=== PATIENT | female | born 1940 | race Caucasian/White ===

== ENCOUNTER 2018-10-19 11:08 | Inpatient (IN) ==
[2018-10-19] MEDS ORDERED: 0.9 % SODIUM CHLORIDE 1,000 ML IV ONE ×2 (11:34→13:31)
[2018-10-19] MEDS ORDERED: ONDANSETRON 4 MG/2 ML VIAL IV ONE (11:34)
--- NOTE | 2018-10-19 11:37 | Emergency Department Note ---
Lower Extremity Injury HPI - General Chief Complaint: Extremity Injury, Lower Stated Complaint: Sinus issue and thinks her right foor is broken Time Seen by Provider: 10/19/18 11:33 Source: patient Mode of arrival: ambulatory Limitations: no limitations - History of Present Illness HPI Narrative: 78-year-old female who is complaining of sinus disease frontal and maxillary areas causing postnasal drip and making her nauseous. She has had nausea vomiting for the last week not able to hold anything down. She is urinating some did so right before coming in. Denies any fever but she is having a little bit loose stools. No recent antibiotic About a week ago she also injured her right lateral ankle. Apparently she walked in the snow to get to her daughter's shop and stomped her feet trying to get the snow off of them, twisting her right ankle somehow. Now complaining of difficulty walking and limping - Related Data Home Medications Medication Instructions Recorded Confirmed Aspirin [Jared Chewable Aspirin] 81 mg PO DAILY 05/21/15 05/21/15 Atorvastatin [Lipitor] 10 mg PO HS 05/21/15 05/21/15 Hydrochlorothiazide 12.5 mg PO BID 05/21/15 05/21/15 Hydrocodone/APAP 7.5/325Mg [[place] 1 tab PO Q6HP PRN 05/21/15 05/21/15 7.5/325Mg] Metoprolol Tartrate [Lopressor] 25 mg PO BID 05/21/15 05/21/15 Nitroglycerin [Nitrostat] 0.4 mg SL Q5M PRN 05/21/15 05/21/15 Venlafaxine [Effexor Xr] 150 mg PO DAILY 05/21/15 05/21/15 traZODone HCL [Desyrel] 200 mg PO HS 05/21/15 05/21/15 busPIRone [Buspar] 10 mg PO TID 05/22/15 05/22/15 hydrOXYzine HCL [Hydroxyzine HCl] 50 mg PO DAILYP PRN 05/22/15 05/22/15 Previous Rx's Medication Instructions Recorded Amoxicillin/Potassium Clav 875 mg PO Q12H #20 tablet 05/23/15 [Augmentin] HYDROcodone/APAP 5/325MG [[place] 1 tab PO Q4HP PRN #30 tablet 05/23/15 5/325Mg] Allergies Allergy/AdvReac Type Severity Reaction Status Date / Time Penicillins Allergy Severe Hives Verified 10/19/18 11:15 Sulfa (Sulfonamide Allergy Severe Hives Verified 10/19/18 11:15 Antibiotics) ct dye Allergy Unknown Uncoded 05/21/15 14:53 Review of Systems All systems ED: reviewed and negative except as stated. Past Medical History - Past Medical History Attestation: Yes: The following information was validated with the patient. Medical history: Reports: GERD, hyperlipidemia, hypertension, seizures Psychiatric history: Reports: depression Surgical history ED: Reports: appendectomy, cholecystectomy, hysterectomy (Partial), orthopedic, other (Fingers), other (Laparoscopy) - Social History smoking status: Former smoker Physical Exam No acute distress resting comfortably. Normocephalic atraumatic. Conjunctive are clear sclerae nonicteric. No nasal discharge but some congestion. Oropharynx is pink and moist. Posterior pharynx is erythematous but I do not see any exudate or postnasal drip. Neck is supple without lymphadenopathy or thyromegaly. No carotid bruit. Heart is regular rate and rhythm no murmur appreciated. Lungs are clear to auscultation bilaterally without wheezes rales rhonchi or respiratory distress. Abdomen soft nontender nondistended. However this does make her more nauseous. No pedal edema. Right ankle is mildly more edematous than the left particularly at the lateral malleolus. Forefoot appears normal and nontender. Lateral malleoli are area on the right is tender. posterior tibial pulses intact +2. No pedal edema. She is able to move all of her toes normally. Alert oriented Limitations: no limitations Course Vital Signs Temperature 98.6 F 10/19/18 11:09 Pulse Rate 67 10/19/18 11:09 Respiratory Rate 16 10/19/18 11:09 Blood Pressure 221/99 10/19/18 11:09 Pulse Oximetry (%) 99 10/19/18 11:09 Temperature 98.6 F 10/19/18 11:09 Pulse Rate 62 10/19/18 12:33 Respiratory Rate 16 10/19/18 11:09 Blood Pressure 199/79 10/19/18 12:33 Pulse Oximetry (%) 99 10/19/18 12:33 Extremity Injury, Lower - Lab Data Lab results reviewed: Yes I reviewed the patient's lab results. Result diagrams: 10/19/18 12:27 10/19/18 12:27 Lab Results 10/19/18 10/19/18 Range/Units 12:27 12:27 WBC 8.5 (4.5-11.0) K/mcL RBC 4.78 (4.00-5.20) M/mcL Hgb 13.8 (12.0-15.0) g/dL Hct 42.4 (36.0-48.0) % MCV 88.7 (80.0-100.0) fL MCH 28.8 (26.0-34.0) pg MCHC 32.5 (31.0-36.0) g/dL RDW 14.8 H (11.5-14.5) % Plt Count 192 (140-440) K/mcL MPV 8.1 (7.4-10.4) fL Gran % 75.8 (38.0-78.0) % Lymph % (Auto) 17.0 (15.5-49.0) % [place] % (Auto) 6.2 (1.0-12.0) % Eos % (Auto) 0.9 (0.0-7.0) % Baso % (Auto) 0.1 (0.0-2.0) % Gran # 6.4 (1.8-8.0) K/mcL Lymph # (Auto) 1.4 L (1.5-4.8) K/mcL [place] # (Auto) 0.5 (0.1-0.9) K/mcL Eos # (Auto) 0.1 (0.0-0.7) K/mcL Baso # (Auto) 0 (0.0-0.3) K/mcL Sodium 118 L* (133-145) mmol/L Potassium 4.4 (3.3-5.1) mmol/L Chloride 84 L (96-108) mmol/L Carbon Dioxide 19 L (22-30) mmol/L Anion Gap 15.0 (8-16) BUN 20 (8-23) mg/dl Creatinine 0.9 (0.6-1.1) mg/dl GFR Calculation 61 Glucose 97 (70-105) mg/dL Calcium 9.0 (8.6-10.4) mg/dl Magnesium 1.7 (1.6-2.5) mg/dL Total Bilirubin 0.6 (0.0-1.0) mg/dL AST 23 (0-37) U/l ALT 13 (0-40) U/l Alkaline Phosphatase 101 (39-117) U/L Total Protein 6.7 (5.9-8.4) gm/dL Albumin 3.8 (3.2-5.2) gm/dL Globulin 2.9 (2.2-3.7) gm/dL Albumin/Globulin Ratio 1.3 (1.0-2.3) - Radiology Data Radiology results reviewed: Yes I reviewed the patient's radiology results. Abdominal x-ray series shows no obstructive pattern, nonspecific bowel gas pattern X-ray of the right ankle shows distal fibular fracture, spiral nondisplaced Disposition Pt seen by WORKFORCE SERVICES REPRESENTATIVE/PA only: No Clinical Impression: Gastroenteritis, Dehydration with hyponatremia Right fibular fracture Qualifiers: Encounter type: initial encounter Fibula location: lateral malleolus Fracture type: closed Fracture alignment: nondisplaced Qualified Code(s): S82.64XA - Nondisplaced fracture of lateral malleolus of right fibula, initial encounter for closed fracture Summary: In terms of the sinus disease/nausea vomiting ordered laboratory and x-ray of the abdomen. Start IV fluids nausea medicine For the right ankle ordered set of x-rays. X-ray shows nondisplaced obliquely oriented distal fibular fracture. Will give walking boot and crutches. Dilaudid for pain Urinalysis [id number] dipstick is normal after getting IV fluids. Chemistry shows hyponatremia which is new compared to previous labs we have available-arevalo pedro the latest is 2014. Likely hyponatremia is acute on chronic-that is her psychiatric meds likely cause small amount of hyponatremia with GI losses superimposed Discussed findings with Dr. Majano, the hospitalist, who agreed to accept the patient for further care of her hyponatremia in the hospital. She continued to have some nausea but no further vomiting Disposition: Xfer As Inpt ([facility]) Condition: Good Referrals: Ivett Field ARNP [Primary Care Provider] -
--- NOTE | 2018-10-19 12:20 | XRay Report ---
CLINICAL INFORMATION: Fall. Ankle pain. TECHNIQUE: AP, oblique, lateral right ankle COMPARISON: None. FINDINGS: Transversely oriented fracture of the distal right fibula at the metadiaphyseal junction. No displacement or angulation. Distal tibia is negative. No distal tibial fracture. No acute medial malleolar fracture. Tibiotalar joint and fibulotalar joints appear normal. There are bone densities between the distal tibia and talus are consistent with old injury. Ossicles are possible. No talar fracture. Articular surface is intact. There is degenerative joint disease at the subtalar joint. The calcaneus is negative for acute fracture. There is sclerosis and there is a plantar calcaneal spur. There is lateral periarticular soft tissue swelling IMPRESSION: 1. Nondisplaced transversely oriented fracture of the distal right fibula at the metadiaphyseal junction 2. No distal tibial fracture. Tibiotalar joint is negative. Interpreted and Authenticated by: Leon Diaz 10/19/18
--- NOTE | 2018-10-19 12:23 | XRay Report ---
CLINICAL INFORMATION: Abdominal pain TECHNIQUE: Supine and upright abdomen COMPARISON: None. FINDINGS: There is gas throughout the colon. There is small bowel gas without significant dilatation. No significant air-fluid levels. No pneumoperitoneum. No pneumatosis. No biliary or portal venous gas. No focal abnormality IMPRESSION: 1. Negative supine and upright abdomen 2. Nonspecific and nonobstructive bowel gas pattern Interpreted and Authenticated by: Leon Diaz 10/19/18
[2018-10-19 13:13] LABS: Basophils # (Auto) 0 K/mcL (0.0-0.3); Basophils % (Auto) 0.1 % (0.0-2.0); Eosinophils # (Auto) 0.1 K/mcL (0.0-0.7); Eosinophils % (Auto) 0.9 % (0.0-7.0); Granulocytes % (Auto) 75.8 % (38.0-78.0); Lymphocytes # (Auto) 1.4 K/mcL (1.5-4.8); Mean Cell Volume 88.7 fL (80.0-100.0); Mean Corpuscular HGB Conc 32.5 g/dL (31.0-36.0); Monocytes # (Auto) 0.5 K/mcL (0.1-0.9); Monocytes % (Auto) 6.2 % (1.0-12.0); Platelet Count 192 K/mcL (140-440); RBC 4.78 M/mcL (4.00-5.20); Red Cell Distribution Width 14.8 % (11.5-14.5)
[2018-10-19 13:28] LABS: ALT/SGPT 13 U/l (0-40); Albumin 3.8 gm/dL (3.2-5.2); Albumin/Globulin Ratio 1.3 (1.0-2.3); Alkaline Phosphatase 101 U/L (39-117); Blood Urea Nitrogen 20 mg/dl (8-23)
[2018-10-19] MEDS ORDERED: HYDROmorphone 2 MG/ML VIAL IV PRN (13:50)
[2018-10-19] MEDS ORDERED: hydrALAZINE 20 MG/ML VIAL IV ONE (14:01)
--- NOTE | 2018-10-19 14:04 | Internal Med History&Physical ---
Medical - H&P: HPI Patient information: Note initiated : 10/19/18 at 2:01 pm Service Date, if different from initiated Date: [] Patient: Gwen Slaughter a 78 y/o F admitted on for Sinus issue and thinks her right foot is broken. Chief Complaint: [] Chief complaint: weakness, nausea and dirrhea History of present illness: Ms. Slaughter is a 78 year old F with a history of hypertension, anxiety disorder and degenerative joint disease who presents to the ER with worsening weakness fatigue nausea with loss of appetite and diarrhea that has evolved over the last 1 week. Patient has progressively deteriorated to the point that she is unable to function. She lives alone and normally is able to perform activities of daily living independently. She has a daughter and a son in town. symptoms are also exacerbated with increasing pain in the right ankle after she was trying to stump snow out of her boot and sustained injury. All the symptoms above culminated into patient unable to function. She also has associated loss of appetite but denies fever chills. She does endorse to bilateral lower extremity cramps. She denies weight gain weight loss, sick contacts, new medication changes. She subsequently presents to the ER with above symptoms Initial workup was consistent with low sodium at 118, right fibular fracture on imaging, and generalized weakness. Right fibular fracture noted on imaging. Patient was placed on a boot. Hospitalist service was consulted for admission. At the time of evaluation patient is alert oriented. She was able to answer most of the questions. Was able to endorse history as above. She denies bloody stool, chest pain, shortness of breath, rash, headache photophobia. She does endorse to bilateral breast fungal infection around the folds. She actively smokes and is requesting nicotine patch. She also complains of right ankle pain which is now currently in a boot. Review of systems 10 point review of system was performed and is negative except for one discussed above Medical - H&P: PMH Medical history: Hypertension. Degenerative joint disease. Hyperlipidemia Coronary disease. seizure disorder GERD Anxiety/depression Insomnia. Surgical history: appendectomy cholecystectomy hysterectomy (Partial) (Laparoscopy) Pertinent family history: Significant for sister with thyroid cancer and brother with leukemia. Social history: he patient is and lives in [place]. She has one son and two daughters with son and daughter Myra living in the [place] She used to work for [employer] in the [employer] for 25 years, currently retired. primary care provider [facility] Alexis. actively smoking- No ETOH Smoking status: Current every day smoker Medical - H&P: Meds Home Medications Medication Instructions Recorded Confirmed Type Aspirin [Jared Chewable Aspirin] 81 mg PO DAILY 05/21/15 10/19/18 History Metoprolol Tartrate [Lopressor] 50 mg PO BID 05/21/15 10/19/18 History Venlafaxine [Effexor Xr] 150 mg PO DAILY 05/21/15 10/19/18 History busPIRone [Buspar] 10 mg PO TID 05/22/15 10/19/18 History Aripiprazole [Abilify] 2 mg PO DAILY 10/19/18 10/19/18 History Losartan/Hctz 50/12.5 [Hyzaar 1 tab PO DAILY 10/19/18 10/19/18 History 50/12.5] Nystatin Crm 1 dose TOPICAL BID 10/19/18 10/19/18 History Omeprazole [PriLOSEC] 20 mg PO DAILY 10/19/18 10/19/18 History Pravastatin Sodium [Pravachol] 40 mg PO DAILY 10/19/18 10/19/18 History Prazosin HCl [Minipress] 1 mg PO HS 10/19/18 10/19/18 History Promethazine [Phenergan] 12.5 mg PO Q6HP PRN 10/19/18 10/19/18 History lamoTRIgine [Lamictal] 25 mg PO HS 10/19/18 10/19/18 History levETIRAcetam [Levetiracetam] 2 tab PO DAILY 10/19/18 10/19/18 History Allergies Allergy/AdvReac Type Severity Reaction Status Date / Time Penicillins Allergy Mild Hives Verified 10/19/18 15:19 Sulfa (Sulfonamide Allergy Mild Hives Verified 10/19/18 15:19 Antibiotics) Iodinated Contrast- Oral and Allergy Unknown Unknown Verified 10/19/18 15:19 IV Dye Medical - H&P: Exam - Constitutional Vitals: Temp Pulse Resp BP Pulse Ox 98.6 F 62 16 199/79 99 10/19/18 11:09 10/19/18 12:33 10/19/18 11:09 10/19/18 12:33 10/19/18 12:33 General appearance: morbidly obese Exam: Alert oriented Head normocephalic Eye movements symmetrical oral cavity dry No ear nose discharge Neck no lymphadenopathy S1-S2 regular rhythm, ejection systolic murmur grade 1 Diminished breath sounds bases Fungal dermatitis B/l breast folds Skin otherwise no suspicious lesion Psych alert cooperative Lower extremity no cyanosis clubbing,Rt Foot in boot Neuro nonfocal Medical - H&P: Reslt - Labs CBC & Chem 7: 10/19/18 12:27 10/19/18 12:27 Labs: Short CBC 10/19/18 Range/Units 12:27 WBC 8.5 (4.5-11.0) K/mcL Hgb 13.8 (12.0-15.0) g/dL Hct 42.4 (36.0-48.0) % Plt Count 192 (140-440) K/mcL BMP 10/19/18 12:27 Sodium 118 L* Potassium 4.4 Chloride 84 L Carbon Dioxide 19 L BUN 20 Creatinine 0.9 Glucose 97 Calcium 9.0 Liver Function 10/19/18 Range/Units 12:27 Total Bilirubin 0.6 (0.0-1.0) mg/dL AST 23 (0-37) U/l ALT 13 (0-40) U/l Alkaline Phosphatase 101 (39-117) U/L Albumin 3.8 (3.2-5.2) gm/dL Medical - H&P: A/P (1) Acute hyponatremia Current visit: Yes Status: Acute * Acute hyponatremia-likely secondary to thiazide/low salt intake and recent diarrhea leading to solute loss. Sodium 118. Check 4 hourly sodium, urine sodium, serum and urine osmolality. Admit inpatient telemetry. Very high risk seizure in the setting of seizure disorder and hyponatremia. Continue neuro checks. * Acute gastroenteritis with nausea and mild diarrhea. Check stool studies. continue supportive management. GI consult for endoscopy. * Right lateral ankle/fibular fracture-nonoperative as per ER physician. Will be on supportive boots. Continue pain management * Suboptimally controlled hypertension-continue as needed hydralazine to keep systolic less than 180/target optimization of high blood pressure over the next 48 hours. * Fungal intertrigo- anti fungal * Anxiety disorder continue Effexor/trazodone/BuSpar * Hyperlipidemia on statin * Degenerative joint disease continue home dose hydrocodone * Active smoking/tobacco dependence- Nicotine patch * Hypertension on metoprolol/thiazide. However medications are being verified * Full code * Prophylaxis heparin Plan * Telemetry admit * 4 hours sodium check, U/Serum Osm, U Na * Optimize blood pressure management * Pain control/PTOT * Supportive management for acute gastroenteritis * Prior medical condition management at home meds
[2018-10-19] MEDS ORDERED: ACETAMINOPHEN 1,000 MG/100 ML BOTTLE IV PRN (15:09)
[2018-10-19] MEDS ORDERED: 0.9 % SODIUM CHLORIDE 1,000 ML IV SCH (15:09)
[2018-10-19] MEDS ORDERED: MAGNESIUM HYDROXIDE 30 ML ORAL.SUSP PO PRN (15:09)
[2018-10-19] MEDS ORDERED: POTASSIUM CHLORIDE 20 MEQ PACKET PO PRN (15:09)
[2018-10-19] MEDS ORDERED: MAGNESIUM SULFATE 2 GM/50 ML BAG IV PRN (15:09)
[2018-10-19] MEDS: 0.9 % SODIUM CHLORIDE 10 ML SYRINGE IV SCH ×2 (15:15→21:09)
[2018-10-19 16:52] LABS: Appearance,Urine CLEAR; Bilirubin,Urine NEG (NEG); Color,Urine COLORLESS; Glucose,Urine (UA) NEGATIVE (NEG); Leukocyte Esterase,Urine NEG /uL (NEG); Protein,Urine NEG (NEG); Specific Gravity,Urine 1.003 (1.000-1.035); Urine Blood NEG mg/dL (<0.03); Urobilinogen,Urine NEG (NEG)
[2018-10-19] MEDS: HYDROmorphone 2 MG/ML VIAL IV PRN ×2 (17:08→22:31)
[2018-10-19] MEDS: ACETAMINOPHEN 325 MG TABLET PO PRN (17:09)
[2018-10-19 17:23] LABS: Osmolality,Urine 123 mOsm/kg (80-1000)
[2018-10-19] MEDS: DEXTROSE 5% IN WATER 500 ML IV SCH ×3 (19:07→23:47)
[2018-10-19] MEDS: DOCUSATE SODIUM 100 MG CAPSULE PO SCH (21:08)
[2018-10-19] MEDS: SENNOSIDES/DOCUSATE SODIUM 1 TAB TABLET PO SCH (21:08)
[2018-10-19] MEDS: ONDANSETRON 4 MG/2 ML VIAL IV PRN (21:08)
[2018-10-19] MEDS: HEPARIN 5,000 UNIT/ML VIAL SQ SCH (21:09)
[2018-10-20 05:04] LABS: Mean Cell Volume 90.4 fL (80.0-100.0); Mean Corpuscular HGB Conc 32.5 g/dL (31.0-36.0); Platelet Count 218 K/mcL (140-440); RBC 4.26 M/mcL (4.00-5.20); Red Cell Distribution Width 14.9 % (11.5-14.5)
[2018-10-20 05:23] LABS: ALT/SGPT 10 U/l (0-40); Albumin 3.3 gm/dL (3.2-5.2); Albumin/Globulin Ratio 1.4 (1.0-2.3); Alkaline Phosphatase 83 U/L (39-117); Bilirubin,Direct < 0.2 mg/dL (0.0-0.3); Blood Urea Nitrogen 9 mg/dl (8-23); Gamma Glutamyl Transpeptidase 22 U/L (5-36); Uric Acid 2.9 mg/dL (2.5-8.0)
[2018-10-20] MEDS: 0.9 % SODIUM CHLORIDE 10 ML SYRINGE IV SCH ×3 (07:20→21:39)
[2018-10-20 07:21] LABS: Band Neutrophils % 1 % (0-10); Eosinophils % (Manual) 2 % (0-7); Lymphocytes % 16 % (15-49); Monocytes % (Manual) 6 % (1-12); Platelet Estimate NORMAL (NORMAL); RBC Morphology NORMAL (NORMAL); Segmented Neutrophils % 75 % (38-78)
[2018-10-20] MEDS: HYDROmorphone 2 MG/ML VIAL IV PRN (07:22)
[2018-10-20] MEDS: ACETAMINOPHEN 325 MG TABLET PO PRN ×2 (07:22→13:57)
[2018-10-20] MEDS ORDERED: LEVOFLOXACIN 500 MG TABLET PO SCH (09:00)
[2018-10-20] MEDS ORDERED: LORazepam 2 MG/ML VIAL IV ONE (09:42)
[2018-10-20] MEDS ORDERED: PROMETHAZINE 25 MG TABLET PO PRN (10:02)
[2018-10-20] MEDS: LOSARTAN 50 MG TABLET PO SCH (10:09)
[2018-10-20] MEDS: DOCUSATE SODIUM 100 MG CAPSULE PO SCH ×2 (10:10→21:39)
[2018-10-20] MEDS: HEPARIN 5,000 UNIT/ML VIAL SQ SCH ×2 (10:12→21:41)
[2018-10-20] MEDS: MULTIVIT,THER IRON,CA,FA & MIN 1 TABLET PO SCH (10:12)
[2018-10-20] MEDS: amLODIPine 5 MG TABLET PO SCH (10:13)
--- NOTE | 2018-10-20 10:28 | Internal Med Progress Note ---
Medical - PN: Subj Patient information: Note initiated : 10/20/18 at 10:25 am Service Date, if different from initiated Date: [] Patient: Gwen Slaughter a 78 y/o F admitted on 10/19/18 for Sinus issue and thinks her right foot is broken. Chief Complaint: [] Interval history: Ms. Slaughter is a 78 year old F with a history of hypertension, anxiety disorder and degenerative joint disease who presents to the ER with worsening weakness fatigue nausea with loss of appetite and diarrhea that has evolved over the last 1 week. Patient has progressively deteriorated to the point that she is unable to function. She lives alone and normally is able to perform activities of daily living independently. She has a daughter and a son in town. symptoms are also exacerbated with increasing pain in the right ankle after she was trying to stump snow out of her boot and sustained injury. All the symptoms above culminated into patient unable to function. She also has associated loss of appetite but denies fever chills. She does endorse to bilateral lower extremity cramps. She denies weight gain weight loss, sick contacts, new medication changes. She subsequently presents to the ER with above symptoms Initial workup was consistent with low sodium at 118, right fibular fracture on imaging, and generalized weakness. Right fibular fracture noted on imaging. Patient was placed on a boot. Hospitalist service was consulted for admission. At the time of evaluation patient is alert oriented. She was able to answer most of the questions. Was able to endorse history as above. She denies bloody stool, chest pain, shortness of breath, rash, headache photophobia. She does endorse to bilateral breast fungal infection around the folds. She actively smokes and is requesting nicotine patch. She also complains of right ankle pain which is now currently in a boot. 10/20- Patient seen in room. Systolics elevated. Restarted on home meds. Sodium improved to 126 from 118. Denies fever chills. Feeling a lot better. Persistent pain however nonoperative fibular fracture currently in boot. Continue physical therapy. Continue optimizing hypertension management. Discontinue hydrochlorthiazide and start amlodipine in light of hyponatremia. - Constitutional Vitals: Vital Signs Temp Pulse Resp BP Pulse Ox 97.3 F 68 18 141/77 99 10/20/18 07:03 10/19/18 20:00 10/20/18 07:03 10/20/18 07:03 10/20/18 07:03 Period Temp Pulse Resp BP Sys/Spencer Pulse Ox Last 24 Hr 97.3 F-98.6 F 59-73 12-18 138-221/58-99 93-100 Intake and Output 10/19/18 10/20/18 10/20/18 21:59 05:59 13:59 Intake Total 1699 240 Output Total 1950 1400 Balance -251 -1160 Weight 169 lb 8 oz Intake & Output: Intake & Output 10/19/18 10/20/18 10/20/18 21:59 05:59 13:59 Intake Total 1699 240 Output Total 1950 1400 Balance -251 -1160 Weight 169 lb 8 oz Intake: IV 1699 Sodium Chloride 0.9% 1,000 ml @ 1149 50 mls/hr IV .Q20H JERRY Rx#: [id number] Oral 240 Output: Void Amount 1950 1400 Other: Meal Dinner Breakfast Percent of Meal Consumed 100% 100% Feeding Ability Assist with Tray Set Up Urine Appearance Clear Urine Color Pale # Voids 1 General appearance: cooperative, no acute distress Exam: No labored breathing Medicine abdomen No telemetry events Right fibular fracture currently on supportive boot Medical - PN: Obj Da - Labs CBC & Chem 7: 10/20/18 03:45 10/20/18 03:45 Labs: Abnormal Lab Results 10/20/18 10/20/18 10/20/18 03:45 03:45 00:42 RDW 14.9 H Lymph # (Auto) Sodium 126 L 126 L Chloride 93 L Carbon Dioxide Osmolality Calcium 8.1 L Total Protein 5.7 L Urine Ketones 10/19/18 10/19/18 10/19/18 19:57 16:45 16:20 RDW Lymph # (Auto) Sodium 122 L 127 L Chloride Carbon Dioxide Osmolality 267 L Calcium Total Protein Urine Ketones 10/19/18 10/19/18 10/19/18 16:20 12:27 12:27 RDW 14.8 H Lymph # (Auto) 1.4 L Sodium 118 L* Chloride 84 L Carbon Dioxide 19 L Osmolality Calcium Total Protein Urine Ketones 5/tr A Meds: Medications Acetaminophen (Tylenol) 650 mg PO Q4-6HP PRN PRN Reason: PAIN/FEVER > 101 Last Admin: 10/20/18 07:22 Dose: 650 mg Documented by: Amlodipine Besylate (Norvasc) 5 mg PO DAILY [facility] Last Admin: 10/20/18 10:13 Dose: 5 mg Documented by: Aspirin (Aspirin) 81 mg PO DAILY [facility] Docusate Sodium (Colace) 100 mg PO BID [facility] Last Admin: 10/20/18 10:10 Dose: Not Given Documented by: Heparin Sodium (Porcine) (Heparin) 5,000 unit SQ Q12 [facility] Last Admin: 10/20/18 10:12 Dose: 5,000 unit Documented by: Hydromorphone HCl (Dilaudid) 0.25 mg IV Q4-6HP PRN PRN Reason: PAIN LEVEL > 6 Last Admin: 10/20/18 07:22 Dose: 0.25 mg Documented by: Magnesium Sulfate (Magnesium Sulfate) 2 gm in 50 mls @ 50 mls/hr IV UD PRN PRN Reason: MG = or < 1.7 Last Infusion: 10/19/18 17:09 Dose: Infused Documented by: Acetaminophen (Ofirmev) 1,000 mg in 100 mls @ 200 mls/hr IV Q6HP PRN PRN Reason: PAIN/FEVER > 101 Iron Carb/Multivit/Commercial Service Technician/Folic Acid (Multivitamin W/Minerals) 1 tab PO DAILY [facility] Last Admin: 10/20/18 10:12 Dose: 1 tab Documented by: Lamotrigine (Lamictal) 25 mg PO HS [facility] Losartan Potassium (Cozaar) 50 mg PO DAILY [facility] Last Admin: 10/20/18 10:09 Dose: 50 mg Documented by: Magnesium Hydroxide (Milk Of Magnesia) 30 ml PO HSP PRN PRN Reason: Constipation Metoprolol Succinate (Toprol Xl) 50 mg PO BID [facility] Non-Formulary Medication (Levetiracetam [Levetiracetam]) 2 tab PO DAILY [facility] Omeprazole (Prilosec) 20 mg PO QAMAC [facility] Ondansetron HCl (Zofran) 4 mg IV Q4-6HP PRN PRN Reason: Nausea And Vomiting Last Admin: 10/19/18 21:08 Dose: 4 mg Documented by: Potassium Chloride (Klor-Con) 40 meq PO DAILYP PRN PRN Reason: K+ < 3.5 Prazosin HCl (Minipress) 1 mg PO HS [facility] Promethazine HCl (Phenergan) 12.5 mg PO Q6HP PRN PRN Reason: Nausea Senna/Docusate Sodium (Senna Plus Tablet) 1 tab PO HS [facility] Last Admin: 10/19/18 21:08 Dose: 1 tab Documented by: Simvastatin (Zocor) 20 mg PO HS [facility] Sodium Chloride (Saline Flush) 10 ml IV Q8 [facility] Last Admin: 10/20/18 07:20 Dose: 10 ml Documented by: Venlafaxine HCl (Effexor Xr) 150 mg PO DAILY [facility] Medical - PN: A/P - Time Spent With Patient Total time spent is greater than 50% in coordination of care (as documented) at patient's floor/unit and/or counseling patient: 25 - 35 minutes (1) Acute hyponatremia Status: Acute Assessment and plan: * Acute hypovolemic hyponatremia-likely secondary to thiazide/low salt intake and recent diarrhea leading to solute loss. Sodium 118-> 126. Right is at goal. DC thiazide very high risk seizure in the setting of seizure disorder and hyponatremia. Urine osmolality< serum consistent with NONSIADH state. * Acute gastroenteritis with nausea and mild diarrhea. Clinically improving. Diarrhea resolved. * Right lateral ankle/fibular fracture-nonoperative as per ER physician. Will be on supportive boots. Continue pain management * Suboptimally controlled hypertension-continue as needed hydralazine, restart home medications except for thiazide in light of hyponatremia. Initiate amlodipine. * Fungal intertrigo-continue anti fungal * Anxiety disorder continue Effexor/trazodone/BuSpar * Hyperlipidemia on statin * Degenerative joint disease continue home dose hydrocodone * Active smoking/tobacco dependence- Nicotine patch * Hypertension on metoprolol/thiazide. However medications are being verified * Full code * Prophylaxis heparin Plan * Continue telemetry monitoring * DC thiazide/start amlodipine * DC sodium checks * Fracture pain control * PTOT * Case management to coordinate his next * prior medical condition management at home meds Current Visit: Yes Medical - PN: Qual - VTE Deep Vein Thrombosis/Pulmonary Embolism Present on Admission: No
[2018-10-20] MEDS: METOPROLOL SUCCINATE 50 MG TAB.XL.24H PO SCH ×2 (11:28→21:39)
[2018-10-20] MEDS: ONDANSETRON 4 MG/2 ML VIAL IV PRN (11:31)
--- NOTE | 2018-10-20 11:51 | Magnetic Resonance Report ---
CLINICAL INFORMATION: Vertigo COMPARISON: Previous MRI scan dated 05/26/2017 TECHNIQUE: Sagittal T1 FLAIR images. Axial DWI, T1 FLAIR, T2 FLAIR, T2, GRE. Coronal T2 FSE. FINDINGS: No restricted diffusion. No acute infarction. There is no susceptibility. No hemorrhagic abnormality. There is white matter abnormality. There are multiple foci of increased signal intensity in the periventricular and subcortical white matter of both hemispheres. Findings are most consistent with small vessel ischemic change in this 78-year-old patient. No new intra-axial signal abnormality. No localized mass effect. No midline shift. There is mild cerebral atrophy, age-appropriate. Brainstem and cerebellum are negative. No extra-axial, intracranial abnormality. Normal flow void in vessels at the base of the brain. Temporal bones are negative. No focal signal abnormality. Paranasal sinuses are negative IMPRESSION: 1. Mild cerebral atrophy and white matter abnormality consistent with small vessel ischemic change 2. No acute or focal abnormality 3. No significant interval change since 05/26/2017 Interpreted and Authenticated by: Leon Diaz 10/20/18
--- NOTE | 2018-10-20 13:44 | Internal Med Progress Note ---
Medical - PN: Subj Patient information: Note initiated : 10/20/18 at 1:40 pm Service Date, if different from initiated Date: [] Patient: Gwen Slaughter a 78 y/o F admitted on 10/19/18 for Sinus issue and thinks her right foot is broken. Chief Complaint: [] Interval history: Ms. Slaughter is a 78 year old F with a history of hypertension, anxiety disorder and degenerative joint disease who presents to the ER with worsening weakness fatigue nausea with loss of appetite and diarrhea that has evolved over the last 1 week. Patient has progressively deteriorated to the point that she is unable to function. She lives alone and normally is able to perform activities of daily living independently. She has a daughter and a son in town. symptoms are also exacerbated with increasing pain in the right ankle after she was trying to stump snow out of her boot and sustained injury. All the symptoms above culminated into patient unable to function. She also has associated loss of appetite but denies fever chills. She does endorse to bilateral lower extremity cramps. She denies weight gain weight loss, sick contacts, new medication changes. She subsequently presents to the ER with above symptoms Initial workup was consistent with low sodium at 118, right fibular fracture on imaging, and generalized weakness. Right fibular fracture noted on imaging. Patient was placed on a boot. Hospitalist service was consulted for admission. At the time of evaluation patient is alert oriented. She was able to answer most of the questions. Was able to endorse history as above. She denies bloody stool, chest pain, shortness of breath, rash, headache photophobia. She does endorse to bilateral breast fungal infection around the folds. She actively smokes and is requesting nicotine patch. She also complains of right ankle pain which is now currently in a boot. 10/20- Patient seen in room. Systolics elevated. Restarted on home meds. Sodium improved to 126 from 118. Denies fever chills. Feeling a lot better. Persistent pain however nonoperative fibular fracture currently in boot. Continue physical therapy. Continue optimizing hypertension management. Discontinue hydrochlorthiazide and start amlodipine in light of hyponatremia. 10/21 - Constitutional Vitals: Vital Signs Temp Pulse Resp BP Pulse Ox 98.8 F 62 18 172/66 99 10/20/18 11:31 10/20/18 09:53 10/20/18 11:31 10/20/18 11:31 10/20/18 11:31 Period Temp Pulse Resp BP Sys/Spencer Pulse Ox Last 24 Hr 97.3 F-98.8 F 59-73 12-18 138-208/58-86 93-100 Intake and Output 10/19/18 10/20/18 10/20/18 21:59 05:59 13:59 Intake Total 1699 240 Output Total 1950 1400 Balance -251 -1160 Weight 76.884 kg Intake & Output: Intake & Output 10/19/18 10/20/18 10/20/18 21:59 05:59 13:59 Intake Total 1699 240 Output Total 1950 1400 Balance -251 -1160 Weight 76.884 kg Intake: IV 1699 Sodium Chloride 0.9% 1,000 ml @ 1149 50 mls/hr IV .Q20H JERRY Rx#: [id number] Oral 240 Output: Void Amount 1949 1400 Other: Meal Dinner Breakfast Percent of Meal Consumed 100% 100% Feeding Ability Assist with Tray Set Up Urine Appearance Clear Urine Color Pale # Voids 1 Exam: General: Alert, Awake, No acute Distress Eyes/N/T: EOMI, Head/Neck: neck supple, CV: RRR, No murmurs, Pulm: Clear b/l, no wheezing/rhonchi/rales Abd: soft, nontender, +BS x4 Ext: no clubbing/cyanosis/edema, right LE in boot Neuro: Alert, no focal deficits, moves all extremities, Skin: warm/dry Medical - PN: Obj Da - Labs CBC & Chem 7: 10/20/18 03:45 10/20/18 03:45 Labs: Abnormal Lab Results 10/20/18 10/20/18 10/20/18 03:45 03:45 00:42 RDW 14.9 H Lymph # (Auto) Sodium 126 L 126 L Chloride 93 L Carbon Dioxide Osmolality Calcium 8.1 L Total Protein 5.7 L Urine Ketones 10/19/18 10/19/18 10/19/18 19:57 16:45 16:20 RDW Lymph # (Auto) Sodium 122 L 127 L Chloride Carbon Dioxide Osmolality 267 L Calcium Total Protein Urine Ketones 10/19/18 10/19/18 10/19/18 16:20 12:27 12:27 RDW 14.8 H Lymph # (Auto) 1.4 L Sodium 118 L* Chloride 84 L Carbon Dioxide 19 L Osmolality Calcium Total Protein Urine Ketones 5/tr A Meds: Medications Acetaminophen (Tylenol) 650 mg PO Q4-6HP PRN PRN Reason: PAIN/FEVER > 101 Last Admin: 10/20/18 07:22 Dose: 650 mg Documented by: Amlodipine Besylate (Norvasc) 5 mg PO DAILY [facility] Last Admin: 10/20/18 10:13 Dose: 5 mg Documented by: Aspirin (Aspirin) 81 mg PO DAILY [facility] Docusate Sodium (Colace) 100 mg PO BID [facility] Last Admin: 10/20/18 10:10 Dose: Not Given Documented by: Heparin Sodium (Porcine) (Heparin) 5,000 unit SQ Q12 [facility] Last Admin: 10/20/18 10:12 Dose: 5,000 unit Documented by: Hydromorphone HCl (Dilaudid) 0.25 mg IV Q4-6HP PRN PRN Reason: PAIN LEVEL > 6 Last Admin: 10/20/18 07:22 Dose: 0.25 mg Documented by: Magnesium Sulfate (Magnesium Sulfate) 2 gm in 50 mls @ 50 mls/hr IV UD PRN PRN Reason: MG = or < 1.7 Last Infusion: 10/19/18 17:09 Dose: Infused Documented by: Acetaminophen (Ofirmev) 1,000 mg in 100 mls @ 200 mls/hr IV Q6HP PRN PRN Reason: PAIN/FEVER > 101 Iron Carb/Multivit/[place]/Folic Acid (Multivitamin W/Minerals) 1 tab PO DAILY [facility] Last Admin: 10/20/18 10:12 Dose: 1 tab Documented by: Lamotrigine (Lamictal) 25 mg PO HS [facility] Losartan Potassium (Cozaar) 50 mg PO DAILY [facility] Last Admin: 10/20/18 10:09 Dose: 50 mg Documented by: Magnesium Hydroxide (Milk Of Magnesia) 30 ml PO HSP PRN PRN Reason: Constipation Metoprolol Succinate (Toprol Xl) 50 mg PO BID [facility] Last Admin: 10/20/18 11:28 Dose: 50 mg Documented by: Omeprazole (Prilosec) 20 mg PO QAMAC [facility] Ondansetron HCl (Zofran) 4 mg IV Q4-6HP PRN PRN Reason: Nausea And Vomiting Last Admin: 10/20/18 11:31 Dose: 4 mg Documented by: Potassium Chloride (Klor-Con) 40 meq PO DAILYP PRN PRN Reason: K+ < 3.5 Prazosin HCl (Minipress) 1 mg PO HS [facility] Promethazine HCl (Phenergan) 12.5 mg PO Q6HP PRN PRN Reason: Nausea Senna/Docusate Sodium (Senna Plus Tablet) 1 tab PO HS [facility] Last Admin: 10/19/18 21:08 Dose: 1 tab Documented by: Simvastatin (Zocor) 20 mg PO HS [facility] Sodium Chloride (Saline Flush) 10 ml IV Q8 [facility] Last Admin: 10/20/18 07:20 Dose: 10 ml Documented by: Venlafaxine HCl (Effexor Xr) 150 mg PO DAILY [facility] Medical - PN: A/P - Time Spent With Patient Total time spent is greater than 50% in coordination of care (as documented) at patient's floor/unit and/or counseling patient: - Narrative A/P Narrative: A: *Acute hypovolemic hyponatremia: likely secondary to thiazide/low salt intake and recent diarrhea leading to solute loss -Sodium 118-> 126. DC thiazide very high risk seizure in the setting of seizure disorder and hyponatremia. -Urine osmolality< serum consistent with NONSIADH state. *Acute gastroenteritis with nausea and mild diarrhea. Clinically improving. Diarrhea resolved. *Right lateral ankle/fibular fracture-nonoperative as per ER physician. Will be on supportive boots. Continue pain management *Suboptimally controlled hypertension: *Fungal intertrigo-continue anti fungal *Anxiety disorder continue Effexor/trazodone/BuSpar *Hyperlipidemia: on statin *Degenerative joint disease continue home dose hydrocodone *Active smoking/tobacco dependence- Nicotine patch *Hypertension on metoprolol/thiazide. However medications are being verified Plan: --continue telemetry monitoring -DC thiazide/start amlodipine -DC sodium checks -continue as needed hydralazine, restart home medications except for thiazide in light of hyponatremia. Initiate amlodipine. -Fracture pain control, cont boot, f/u with Ortho -PT/OT -Case management -Smoking cessation counseling -ppx: heparin Full code Medical - PN: Qual - VTE Deep Vein Thrombosis/Pulmonary Embolism Present on Admission: No
[2018-10-20] MEDS ORDERED: HYDROcodone/APAP 5/325MG TABLET PO ONE (17:50)
[2018-10-20] MEDS ORDERED: SIMVASTATIN 20 MG TABLET PO SCH (21:00)
[2018-10-20] MEDS ORDERED: PRAZOSIN 1 MG CAPSULE PO SCH (21:00)
[2018-10-20] MEDS: NICOTINE 7 MG PATCH TOPICAL SCH (21:38)
[2018-10-20] MEDS: SENNOSIDES/DOCUSATE SODIUM 1 TAB TABLET PO SCH (21:39)
[2018-10-21] MEDS: HYDROcodone/APAP 5/325MG TABLET PO PRN ×4 (00:02→20:49)
[2018-10-21 05:22] LABS: Mean Cell Volume 89.9 fL (80.0-100.0); Platelet Count 201 K/mcL (140-440); RBC 4.08 M/mcL (4.00-5.20); Red Cell Distribution Width 14.9 % (11.5-14.5)
[2018-10-21 05:32] LABS: ALT/SGPT 8 U/l (0-40); Albumin 3.4 gm/dL (3.2-5.2); Albumin/Globulin Ratio 1.4 (1.0-2.3); Alkaline Phosphatase 74 U/L (39-117); Bilirubin,Direct < 0.2 mg/dL (0.0-0.3); Blood Urea Nitrogen 8 mg/dl (8-23); Gamma Glutamyl Transpeptidase 21 U/L (5-36); Uric Acid 2.6 mg/dL (2.5-8.0)
[2018-10-21] MEDS: 0.9 % SODIUM CHLORIDE 10 ML SYRINGE IV SCH ×3 (05:50→23:16)
--- NOTE | 2018-10-21 07:03 | Internal Med Progress Note ---
Medical - PN: Subj Patient information: Note initiated : 10/21/18 at 7:00 am Service Date, if different from initiated Date: [] Patient: Gwen Slaughter a 78 y/o F admitted on 10/19/18 for Sinus issue and thinks her right foot is broken. Chief Complaint: [] Interval history: Ms. Slaughter is a 78 year old F with a history of hypertension, anxiety disorder and degenerative joint disease who presents to the ER with worsening weakness fatigue nausea with loss of appetite and diarrhea that has evolved over the last 1 week. Patient has progressively deteriorated to the point that she is unable to function. She lives alone and normally is able to perform activities of daily living independently. She has a daughter and a son in town. symptoms are also exacerbated with increasing pain in the right ankle after she was trying to stump snow out of her boot and sustained injury. All the symptoms above culminated into patient unable to function. She also has associated loss of appetite but denies fever chills. She does endorse to bilateral lower extremity cramps. She denies weight gain weight loss, sick contacts, new medication changes. She subsequently presents to the ER with above symptoms Initial workup was consistent with low sodium at 118, right fibular fracture on imaging, and generalized weakness. Right fibular fracture noted on imaging. Patient was placed on a boot. Hospitalist service was consulted for admission. At the time of evaluation patient is alert oriented. She was able to answer most of the questions. Was able to endorse history as above. She denies bloody stool, chest pain, shortness of breath, rash, headache photophobia. She does endorse to bilateral breast fungal infection around the folds. She actively smokes and is requesting nicotine patch. She also complains of right ankle pain which is now currently in a boot. 10/20- Patient seen in room. Systolics elevated. Restarted on home meds. Sodium improved to 126 from 118. Denies fever chills. Feeling a lot better. Persistent pain however nonoperative fibular fracture currently in boot. Continue physical therapy. Continue optimizing hypertension management. Discontinue hydrochlorthiazide and start amlodipine in light of hyponatremia. 10/21 Slept okay. Had a headache earlier but now improved. Has a mild lingering cough from recent cold. No other pains or complaints. Review of Systems: denies fever/chills/nausea/vomiting/chest or abdominal pain/dyspnea/diarrhea. Otherwise see above. - Constitutional Vitals: Vital Signs Temp Pulse Resp BP Pulse Ox 98.4 F 76 18 167/67 94 10/21/18 00:00 10/21/18 00:00 10/21/18 04:06 10/21/18 04:06 10/21/18 04:06 Period Temp Pulse Resp BP Sys/Spencer Pulse Ox Last 24 Hr 97.3 F-98.8 F 62-76 16-18 132-200/66-86 94-99 Intake and Output 10/20/18 10/21/18 10/21/18 21:59 05:59 13:59 Intake Total 240 240 Output Total 450 550 Balance -210 -310 Weight 76.566 kg Intake & Output: Intake & Output 10/20/18 10/21/18 10/21/18 21:59 05:59 13:59 Intake Total 240 240 Output Total 450 550 Balance -210 -310 Weight 76.566 kg Intake: Oral 240 240 Output: Void Amount 450 550 Other: Meal Dinner Percent of Meal Consumed 100% # Voids 1 Exam: General: Alert, Awake, No acute Distress Eyes/N/T: EOMI, Head/Neck: neck supple, CV: RRR, No murmurs, Pulm: Clear b/l, no wheezing/rhonchi/rales Abd: soft, nontender, +BS x4 Ext: no clubbing/cyanosis/edema, right LE in boot Neuro: Alert, no focal deficits, moves all extremities, Skin: warm/dry Medical - PN: Obj Da - Labs CBC & Chem 7: 10/21/18 03:48 10/21/18 03:48 Labs: Abnormal Lab Results 10/21/18 10/21/18 10/20/18 03:48 03:48 03:45 RDW 14.9 H Lymph # (Auto) Sodium 131 L 126 L Chloride 95 L 93 L Carbon Dioxide Anion Gap 7.0 L Osmolality Calcium 8.1 L Total Protein 5.8 L 5.7 L Urine Ketones 10/20/18 10/20/18 10/19/18 03:45 00:42 19:57 RDW 14.9 H Lymph # (Auto) Sodium 126 L 122 L Chloride Carbon Dioxide Anion Gap Osmolality Calcium Total Protein Urine Ketones 02/14/19 02/14/19 02/14/19 16:45 16:20 16:20 RDW Lymph # (Auto) Sodium 127 L Chloride Carbon Dioxide Anion Gap Osmolality 267 L Calcium Total Protein Urine Ketones 5/tr A 10/19/18 10/19/18 12:27 12:27 RDW 14.8 H Lymph # (Auto) 1.4 L Sodium 118 L* Chloride 84 L Carbon Dioxide 19 L Anion Gap Osmolality Calcium Total Protein Urine Ketones Meds: Medications Acetaminophen (Tylenol) 650 mg PO Q4-6HP PRN PRN Reason: PAIN/FEVER > 101 Last Admin: 10/20/18 13:57 Dose: 650 mg Documented by: Hydrocodone Bitart/Acetaminophen ([place] 5/325mg) 1 tab PO Q4-6HP PRN PRN Reason: PAIN LEVEL 3-6 Last Admin: 10/21/18 00:02 Dose: 1 tab Documented by: Amlodipine Besylate (Norvasc) 5 mg PO DAILY [facility] Last Admin: 10/20/18 10:13 Dose: 5 mg Documented by: Aspirin (Aspirin) 81 mg PO DAILY [facility] Docusate Sodium (Colace) 100 mg PO BID [facility] Last Admin: 10/20/18 21:39 Dose: Not Given Documented by: Heparin Sodium (Porcine) (Heparin) 5,000 unit SQ Q12 [facility] Last Admin: 10/20/18 21:41 Dose: 5,000 unit Documented by: Hydromorphone HCl (Dilaudid) 0.25 mg IV Q4-6HP PRN PRN Reason: PAIN LEVEL > 6 Last Admin: 10/20/18 07:22 Dose: 0.25 mg Documented by: Magnesium Sulfate (Magnesium Sulfate) 2 gm in 50 mls @ 50 mls/hr IV UD PRN PRN Reason: MG = or < 1.7 Last Infusion: 10/19/18 17:09 Dose: Infused Documented by: Acetaminophen (Ofirmev) 1,000 mg in 100 mls @ 200 mls/hr IV Q6HP PRN PRN Reason: PAIN/FEVER > 101 Iron Carb/Multivit/[employer]/Folic Acid (Multivitamin W/Minerals) 1 tab PO DAILY [facility] Last Admin: 10/20/18 10:12 Dose: 1 tab Documented by: Lamotrigine (Lamictal) 25 mg PO HS [facility] Losartan Potassium (Cozaar) 50 mg PO DAILY [facility] Last Admin: 10/20/18 10:09 Dose: 50 mg Documented by: Magnesium Hydroxide (Milk Of Magnesia) 30 ml PO HSP PRN PRN Reason: Constipation Metoprolol Succinate (Toprol Xl) 50 mg PO BID [facility] Last Admin: 10/20/18 21:39 Dose: 50 mg Documented by: Nicotine (Nicoderm) 7 mg TOPICAL DAILY@1000 [facility] Last Admin: 10/20/18 21:38 Dose: 7 mg Documented by: [facility]) [facility] Ondansetron HCl (Zofran) 4 mg IV Q4-6HP PRN PRN Reason: Nausea And Vomiting Last Admin: 10/20/18 11:31 Dose: 4 mg Documented by: Potassium Chloride (Klor-Con) 40 meq PO DAILYP PRN PRN Reason: K+ < 3.5 Prazosin HCl (Minipress) 1 mg PO [facility] Last Admin: 10/20/18 21:39 Dose: 1 mg Documented by: Promethazine HCl (Phenergan) 12.5 mg PO Q6HP PRN PRN Reason: Nausea Senna/Docusate Sodium (Senna Plus Tablet) 1 tab PO [facility] Last Admin: 10/20/18 21:39 Dose: Not Given Documented by: Simvastatin (Zocor) 20 mg PO [facility] Last Admin: 10/20/18 21:39 Dose: 20 mg Documented by: Sodium Chloride (Saline Flush) 10 ml IV Q8 [facility] Last Admin: 10/21/18 05:50 Dose: 10 ml Documented by: Venlafaxine HCl (Effexor Xr) 150 mg PO DAILY [facility] Medical - PN: A/P - Time Spent With Patient Total time spent is greater than 50% in coordination of care (as documented) at patient's floor/unit and/or counseling patient: - Narrative A/P Narrative: A: *Acute hypovolemic hyponatremia: likely secondary to thiazide/low salt intake and recent diarrhea leading to solute loss -Improving. DC thiazide very high risk seizure in the setting of seizure disorder and hyponatremia. -Urine osmolality< serum consistent with NONSIADH state. *Acute gastroenteritis with nausea and mild diarrhea. Clinically improving. Diarrhea resolved. *Right lateral ankle/fibular fracture-nonoperative as per ER physician. Will be on supportive boots. Continue pain management *Suboptimally controlled hypertension: stable on norvasc *Fungal intertrigo-continue anti fungal *h/o Sz d/o: *Anxiety disorder: continue Effexor/trazodone/BuSpar *Hyperlipidemia: on statin *Degenerative joint disease: continue home dose hydrocodone *Active smoking/tobacco dependence: Nicotine patch *Hypertension: on metoprolol/losartan/thiazide at home Plan: -continue telemetry monitoring -DC thiazide, started amlodipine -restart home medications except for thiazide in light of hyponatremia. Initiate amlodipine. -Fracture pain control, cont boot, f/u with Ortho -PT/OT -Case management -Smoking cessation counseling -ppx: heparin Full code Medical - PN: Qual - VTE Deep Vein Thrombosis/Pulmonary Embolism Present on Admission: No
[2018-10-21 07:23] LABS: Eosinophils % (Manual) 5 % (0-7); Lymphocytes % 27 % (15-49); Monocytes % (Manual) 9 % (1-12); Platelet Estimate NORMAL (NORMAL); RBC Morphology NORMAL (NORMAL); Segmented Neutrophils % 59 % (38-78)
[2018-10-21] MEDS ORDERED: OMEPRAZOLE 20 MG CAPSULE PO SCH (07:30)
[2018-10-21] MEDS: METOPROLOL SUCCINATE 50 MG TAB.XL.24H PO SCH ×2 (07:39→20:49)
[2018-10-21] MEDS: MULTIVIT,THER IRON,CA,FA & MIN 1 TABLET PO SCH (07:39)
[2018-10-21] MEDS: HEPARIN 5,000 UNIT/ML VIAL SQ SCH ×2 (07:39→20:50)
[2018-10-21] MEDS: LOSARTAN 50 MG TABLET PO SCH (07:39)
[2018-10-21] MEDS: amLODIPine 5 MG TABLET PO SCH (07:39)
[2018-10-21] MEDS: DOCUSATE SODIUM 100 MG CAPSULE PO SCH ×2 (07:40→20:50)
[2018-10-21] MEDS ORDERED: ARIPIPRAZOLE 5 MG TABLET PO SCH (09:00)
[2018-10-21] MEDS ORDERED: ASPIRIN 81 MG TAB.CHEW PO SCH (09:00)
[2018-10-21] MEDS ORDERED: levETIRAcetam 500 MG TABLET PO SCH (09:00)
[2018-10-21] MEDS ORDERED: lamoTRIgine 100 MG TABLET PO SCH ×2 (09:00→21:00)
[2018-10-21] MEDS ORDERED: VENLAFAXINE 150 MG CAP.XL.24H PO SCH (09:00)
[2018-10-21] MEDS ORDERED: LOSARTAN 50 MG TABLET PO ONE (10:18)
[2018-10-21] MEDS: NICOTINE 7 MG PATCH TOPICAL SCH (11:06)
--- NOTE | 2018-10-21 11:12 | Discharge Summary ---
Medical - DS: Prov Patient information: Note initiated : 10/21/18 at 11:06 am Service Date, if different from initiated Date: [] Patient: Gwen Slaughter 78 y/o F admitted on 10/19/18 for Sinus issue and thinks her right foot is broken. Chief Complaint: [] Date of admission: 10/19/18 15:10 Discharge date: 10/22/18 Primary care physician: Ivett Field Consults: 10/19/18 Consult to Physician [CONS] Stat Comment: Consulting Provider: Demario Bautista Reason For Exam: Physician to Consult Medical - DS: Meds - Discharge Medications Prescriptions: amLODIPine [Norvasc] 5 mg PO DAILY #30 tab Losartan [Cozaar] 100 mg PO DAILY #30 tab Active and Home Medications: Home Medications Aspirin [Jared Chewable Aspirin] 81 mg PO DAILY 05/21/15 [History Confirmed 10/19/18 Last Taken 05/21/15 09:00] Venlafaxine [Effexor Xr] 150 mg PO DAILY 05/21/15 [History Confirmed 10/19/18 Last Taken 05/21/15 08:00] Aripiprazole [Abilify] 2 mg PO DAILY 10/19/18 [History Confirmed 10/19/18 Last Taken Unknown] Losartan/Hctz 50/12.5 [Hyzaar 50/12.5] 1 tab PO DAILY 10/19/18 [History Confirmed 10/19/18 Last Taken Unknown] Nystatin Crm 1 dose TOPICAL BID 10/19/18 [History Confirmed 10/19/18 Last Taken Unknown] Omeprazole [PriLOSEC] 20 mg PO DAILY 10/19/18 [History Confirmed 10/19/18 Last Taken Unknown] Pravastatin Sodium [Pravachol] 40 mg PO DAILY 10/19/18 [History Confirmed 10/19/18 Last Taken Unknown] Prazosin HCl [Minipress] 1 mg PO HS 10/19/18 [History Confirmed 10/19/18 Last Taken Unknown] Promethazine [Phenergan] 12.5 mg PO Q6HP PRN 10/19/18 [History Confirmed 10/19/18 Last Taken Unknown] lamoTRIgine [Lamictal] 25 mg PO HS 10/19/18 [History Confirmed 10/19/18 Last Taken Unknown] levETIRAcetam [Levetiracetam] 500 mg PO DAILY 10/19/18 [History Confirmed 10/20/18 Last Taken Unknown] Metoprolol Succinate [Toprol Xl] 50 mg PO BID 10/20/18 [History Confirmed 10/20/18 Last Taken Unknown] Home Medications Aspirin [Jared Chewable Aspirin] 81 mg PO DAILY 05/21/15 [History Confirmed 10/19/18 Last Taken 05/21/15 09:00] Venlafaxine [Effexor Xr] 150 mg PO DAILY 05/21/15 [History Confirmed 10/19/18 Last Taken 05/21/15 08:00] Aripiprazole [Abilify] 2 mg PO DAILY 10/19/18 [History Confirmed 10/19/18 Last Taken Unknown] Nystatin Crm 1 dose TOPICAL BID 10/19/18 [History Confirmed 10/19/18 Last Taken Unknown] Omeprazole [Prilosec] 20 mg PO DAILY 10/19/18 [History Confirmed 10/19/18 Last Taken Unknown] Pravastatin Sodium [Pravachol] 40 mg PO DAILY 10/19/18 [History Confirmed 10/19/18 Last Taken Unknown] Prazosin HCl [Minipress] 1 mg PO HS 10/19/18 [History Confirmed 10/19/18 Last Taken Unknown] Promethazine [Phenergan] 12.5 mg PO Q6HP PRN 10/19/18 [History Confirmed 10/19/18 Last Taken Unknown] lamoTRIgine [Lamictal] 25 mg PO HS 10/19/18 [History Confirmed 10/19/18 Last Taken Unknown] levETIRAcetam [Levetiracetam] 500 mg PO DAILY 10/19/18 [History Confirmed 10/20/18 Last Taken Unknown] Metoprolol Succinate [Toprol Xl] 50 mg PO BID 10/20/18 [History Confirmed 10/20/18 Last Taken Unknown] Losartan [Cozaar] 100 mg PO DAILY #30 tab 10/21/18 [Rx Last Taken Unknown] amLODIPine [Norvasc] 5 mg PO DAILY #30 tab 10/21/18 [Rx Last Taken Unknown] Medical - DS: Hosp Hospital course: Ms. Slaughter is a 78 year old F with a history of hypertension, anxiety disorder and degenerative joint disease who presents to the ER with worsening weakness fatigue nausea with loss of appetite and diarrhea that has evolved over the last 1 week. Patient has progressively deteriorated to the point that she is unable to function. She lives alone and normally is able to perform activities of daily living independently. She has a daughter and a son in town. symptoms are also exacerbated with increasing pain in the right ankle after she was trying to stump snow out of her boot and sustained injury. All the symptoms above culminated into patient unable to function. She also has associated loss of appetite but denies fever chills. She does endorse to bilateral lower extremity cramps. She denies weight gain weight loss, sick contacts, new medication changes. She subsequently presents to the ER with above symptoms Initial workup was consistent with low sodium at 118, right fibular fracture on imaging, and generalized weakness. Right fibular fracture noted on imaging. Patient was placed on a boot. Hospitalist service was consulted for admission. At the time of evaluation patient is alert oriented. She was able to answer most of the questions. Was able to endorse history as above. She denies bloody stool, chest pain, shortness of breath, rash, headache photophobia. She does endorse to bilateral breast fungal infection around the folds. She actively smokes and is requesting nicotine patch. She also complains of right ankle pain which is now currently in a boot. 10/20- Patient seen in room. Systolics elevated. Restarted on home meds. Sodium improved to 126 from 118. Denies fever chills. Feeling a lot better. Persistent pain however nonoperative fibular fracture currently in boot. Continue physical therapy. Continue optimizing hypertension management. Discontinue hydrochlorthiazide and start amlodipine in light of hyponatremia. 10/21 Slept okay. Had a headache earlier but now improved. Has a mild lingering cough from recent cold. No other pains or complaints. 10/22 Continues to feel better, slept better. No other new complaints. Stable for discharge Discharge diagnosis: Hypovolemic hyponatremia gastroenteritis fibular fracture hypertension Secondary discharge diagnosis: Anxiety history of seizure disorder DJD tobacco abuse - Time Spent with Patient Total time spent providing and/or coordinating discharge services: Greater than 30 minutes Medical - DS: Exam - Constitutional Vitals: Vital Signs Temp Pulse Resp BP BP Pulse Ox 10/21/18 04:06 18 167/67 94 10/21/18 00:00 98.4 F 76 16 138/80 95 10/20/18 15:43 132/70 10/20/18 15:41 98.6 F 18 132/70 98 10/20/18 11:31 98.8 F 18 172/66 99 Intake and Output 10/20/18 10/21/18 10/21/18 21:59 05:59 13:59 Intake Total 240 240 240 Output Total 450 550 875 Balance -706 -738 -387 Intake: Oral 240 240 240 Output: Urine Catheter Amount 875 Void Amount 450 550 Other: Meal Dinner Percent of Meal Consumed 100% Stool Size Large Stool Color Brown Stool Consistency Formed # Voids 1 Weight 76.566 kg Medical - DS: Data Labs on day of discharge: Labs from last 24 hours 10/21/18 10/21/18 03:48 03:48 WBC 5.0 RBC 4.08 Hgb 12.1 Hct 36.7 MCV 89.9 MCH 29.7 MCHC 33.0 RDW 14.9 H Plt Count 201 MPV 8.1 Total Counted 100 Seg Neutrophils % 59 Band Neutrophils % Not Reportable Lymphocytes % 27 Monocytes % (Manual) 9 Eosinophils % (Manual) 5 Platelet Estimate Normal RBC Morphology Normal Sodium 131 L Potassium 4.3 Chloride 95 L Carbon Dioxide 29 Anion Gap 7.0 L BUN 8 Creatinine 0.6 GFR Calculation 87 Glucose 103 Uric Acid 2.6 Calcium 8.8 Phosphorus 3.3 Magnesium 1.8 Total Bilirubin 0.3 Direct Bilirubin < 0.2 GGT 21 AST 13 ALT 8 Alkaline Phosphatase 74 Lactate Dehydrogenase 168 Total Protein 5.8 L Albumin 3.4 Globulin 2.4 Albumin/Globulin Ratio 1.4 Triglycerides 77 Medical - DS: A/P - Patient/Caregiver Discharge Instructions Activity: as per physical therapy Diet: Regular Diet Additional Instructions: Referral to follow-up with orthopedic surgery for fibula fracture Prescriptions: amLODIPine [Norvasc] 5 mg PO DAILY #30 tab Losartan [Cozaar] 100 mg PO DAILY #30 tab - Follow up Plan Follow up with: Ivett Field ARNP [Primary Care Provider] - Disposition: Home Health Service Prognosis: Good Rehab Potential: Good Medical - DS: Qual - VTE Deep Vein Thrombosis/Pulmonary Embolism Present on Admission: No
[2018-10-21] MEDS ORDERED: HYDROmorphone 2 MG/ML VIAL IV PRN (12:27)
[2018-10-21] MEDS ORDERED: PROMETHAZINE 25 MG TABLET PO PRN (12:27)
[2018-10-21] MEDS ORDERED: MAGNESIUM SULFATE 2 GM/50 ML BAG IV PRN (12:27)
[2018-10-21] MEDS ORDERED: ACETAMINOPHEN 325 MG TABLET PO PRN (12:27)
[2018-10-21] MEDS ORDERED: ACETAMINOPHEN 1,000 MG/100 ML BOTTLE IV PRN (12:27)
[2018-10-21] MEDS ORDERED: ONDANSETRON 4 MG/2 ML VIAL IV PRN (12:27)
[2018-10-21] MEDS ORDERED: MAGNESIUM HYDROXIDE 30 ML ORAL.SUSP PO PRN (12:27)
[2018-10-21] MEDS ORDERED: POTASSIUM CHLORIDE 20 MEQ PACKET PO PRN (12:27)
[2018-10-21] MEDS ORDERED: SENNOSIDES/DOCUSATE SODIUM 1 TAB TABLET PO SCH (21:00)
[2018-10-21] MEDS ORDERED: PRAVASTATIN 40 MG TABLET PO SCH (21:00)
[2018-10-21] MEDS ORDERED: SIMVASTATIN 20 MG TABLET PO SCH (21:00)
[2018-10-21] MEDS ORDERED: PRAZOSIN 1 MG CAPSULE PO SCH (21:00)
[2018-10-22] MEDS: HYDROcodone/APAP 5/325MG TABLET PO PRN ×3 (01:22→12:05)
[2018-10-22 05:52] LABS: Blood Urea Nitrogen 15 mg/dl (8-23)
[2018-10-22] MEDS: 0.9 % SODIUM CHLORIDE 10 ML SYRINGE IV SCH (07:14)
[2018-10-22] MEDS ORDERED: OMEPRAZOLE 20 MG CAPSULE PO SCH (07:30)
[2018-10-22] MEDS ORDERED: ASPIRIN 81 MG TAB.CHEW PO SCH (09:00)
[2018-10-22] MEDS ORDERED: amLODIPine 5 MG TABLET PO SCH (09:00)
[2018-10-22] MEDS ORDERED: ARIPIPRAZOLE 5 MG TABLET PO SCH ×2 (09:00)
[2018-10-22] MEDS ORDERED: levETIRAcetam 500 MG TABLET PO SCH (09:00)
[2018-10-22] MEDS ORDERED: VENLAFAXINE 150 MG CAP.XL.24H PO SCH (09:00)
[2018-10-22] MEDS ORDERED: MULTIVIT,THER IRON,CA,FA & MIN 1 TABLET PO SCH (09:00)
[2018-10-22] MEDS ORDERED: LOSARTAN 50 MG TABLET PO SCH ×2 (09:00)
[2018-10-22] MEDS: DOCUSATE SODIUM 100 MG CAPSULE PO SCH (09:23)
[2018-10-22] MEDS: METOPROLOL SUCCINATE 50 MG TAB.XL.24H PO SCH (09:23)
[2018-10-22] MEDS: HEPARIN 5,000 UNIT/ML VIAL SQ SCH (09:24)
--- NOTE | 2018-10-22 09:42 | Internal Med Progress Note ---
Medical - PN: Subj Patient information: Note initiated : 10/22/18 at 9:41 am Service Date, if different from initiated Date: [] Patient: Gwen Slaughter a 78 y/o F admitted on 10/19/18 for Sinus issue and thinks her right foot is broken. Chief Complaint: [] Interval history: Ms. Slaughter is a 78 year old F with a history of hypertension, anxiety disorder and degenerative joint disease who presents to the ER with worsening weakness fatigue nausea with loss of appetite and diarrhea that has evolved over the last 1 week. Patient has progressively deteriorated to the point that she is unable to function. She lives alone and normally is able to perform activities of daily living independently. She has a daughter and a son in town. symptoms are also exacerbated with increasing pain in the right ankle after she was trying to stump snow out of her boot and sustained injury. All the symptoms above culminated into patient unable to function. She also has associated loss of appetite but denies fever chills. She does endorse to bilateral lower extremity cramps. She denies weight gain weight loss, sick contacts, new medication changes. She subsequently presents to the ER with above symptoms Initial workup was consistent with low sodium at 118, right fibular fracture on imaging, and generalized weakness. Right fibular fracture noted on imaging. Patient was placed on a boot. Hospitalist service was consulted for admission. At the time of evaluation patient is alert oriented. She was able to answer most of the questions. Was able to endorse history as above. She denies bloody stool, chest pain, shortness of breath, rash, headache photophobia. She does endorse to bilateral breast fungal infection around the folds. She actively smokes and is requesting nicotine patch. She also complains of right ankle pain which is now currently in a boot. 10/20- Patient seen in room. Systolics elevated. Restarted on home meds. Sodium improved to 126 from 118. Denies fever chills. Feeling a lot better. Persistent pain however nonoperative fibular fracture currently in boot. Continue physical therapy. Continue optimizing hypertension management. Discontinue hydrochlorthiazide and start amlodipine in light of hyponatremia. 10/21 Slept okay. Had a headache earlier but now improved. Has a mild lingering cough from recent cold. No other pains or complaints. Review of Systems: denies fever/chills/nausea/vomiting/chest or abdominal pain/dyspnea/diarrhea. Otherwise see above. - Constitutional Vitals: Vital Signs Temp Pulse Resp BP Pulse Ox 97.8 F 55 L 16 165/72 97 10/22/18 07:42 10/22/18 07:42 10/22/18 07:42 10/22/18 07:42 10/22/18 07:42 Period Temp Pulse Resp BP Sys/Spencer Pulse Ox Last 24 Hr 97.8 F-98.7 F 55-60 16-20 136-213/62-82 94-99 Intake and Output 10/21/18 10/22/18 10/22/18 21:59 05:59 13:59 Intake Total 600 Balance 600 Weight 75.75 kg Intake & Output: Intake & Output 10/21/18 10/22/18 10/22/18 21:59 05:59 13:59 Intake Total 600 Balance 600 Weight 75.75 kg Intake: Oral 600 Other: Meal Dinner Percent of Meal Consumed 100% # Voids 1 Exam: General: Alert, Awake, No acute Distress Eyes/N/T: EOMI, Head/Neck: neck supple, CV: RRR, No murmurs, Pulm: Clear b/l, no wheezing/rhonchi/rales Abd: soft, nontender, +BS x4 Ext: no clubbing/cyanosis/edema, right LE in boot Neuro: Alert, no focal deficits, moves all extremities, Skin: warm/dry Medical - PN: Obj Da - Labs CBC & Chem 7: 10/21/18 03:48 10/22/18 03:06 Labs: Abnormal Lab Results 10/22/18 10/21/18 10/21/18 03:06 03:48 03:48 RDW 14.9 H Lymph # (Auto) Sodium 131 L 131 L Chloride 95 L 95 L Carbon Dioxide Anion Gap 7.0 L Osmolality Calcium Total Protein 5.8 L Urine Ketones 10/20/18 10/20/18 10/20/18 03:45 03:45 00:42 RDW 14.9 H Lymph # (Auto) Sodium 126 L 126 L Chloride 93 L Carbon Dioxide Anion Gap Osmolality Calcium 8.1 L Total Protein 5.7 L Urine Ketones 10/19/18 10/19/18 10/19/18 19:57 16:45 16:20 RDW Lymph # (Auto) Sodium 122 L 127 L Chloride Carbon Dioxide Anion Gap Osmolality 267 L Calcium Total Protein Urine Ketones 10/19/18 10/19/18 10/19/18 16:20 12:27 12:27 RDW 14.8 H Lymph # (Auto) 1.4 L Sodium 118 L* Chloride 84 L Carbon Dioxide 19 L Anion Gap Osmolality Calcium Total Protein Urine Ketones 5/tr A Meds: Medications Acetaminophen (Tylenol) 650 mg PO Q4-6HP PRN PRN Reason: PAIN/FEVER > 101 Hydrocodone Bitart/Acetaminophen ([place] 5/325mg) 1 tab PO Q4-6HP PRN PRN Reason: PAIN LEVEL 3-6 Last Admin: 10/22/18 07:37 Dose: 1 tab Documented by: Amlodipine Besylate (Norvasc) 5 mg PO DAILY [facility] Last Admin: 10/22/18 09:24 Dose: 5 mg Documented by: Aspirin (Aspirin) 81 mg PO DAILY [facility] Last Admin: 10/22/18 09:24 Dose: 81 mg Documented by: Docusate Sodium (Colace) 100 mg PO BID [facility] Last Admin: 10/22/18 09:23 Dose: Not Given Documented by: Heparin Sodium (Porcine) (Heparin) 5,000 unit SQ Q12 [facility] Last Admin: 10/22/18 09:24 Dose: 5,000 unit Documented by: Hydromorphone HCl (Dilaudid) 0.25 mg IV Q4-6HP PRN PRN Reason: PAIN LEVEL > 6 Magnesium Sulfate (Magnesium Sulfate) 2 gm in 50 mls @ 50 mls/hr IV UD PRN PRN Reason: MG = or < 1.7 Acetaminophen (Ofirmev) 1,000 mg in 100 mls @ 200 mls/hr IV Q6HP PRN PRN Reason: PAIN/FEVER > 101 Iron Carb/Multivit/[place]/Folic Acid (Multivitamin W/Minerals) 1 tab PO DAILY [facility] Last Admin: 10/22/18 09:24 Dose: 1 tab Documented by: Lamotrigine (Lamictal) 25 mg PO HS [facility] Last Admin: 10/21/18 20:50 Dose: 25 mg Documented by: Levetiracetam (Keppra) 500 mg PO DAILY [facility] Last Admin: 10/22/18 09:22 Dose: 500 mg Documented by: Losartan Potassium (Cozaar) 100 mg PO DAILY [facility] Last Admin: 10/22/18 09:22 Dose: 100 mg Documented by: Magnesium Hydroxide (Milk Of Magnesia) 30 ml PO HSP PRN PRN Reason: Constipation Metoprolol Succinate (Toprol Xl) 50 mg PO BID [facility] Last Admin: 10/22/18 09:23 Dose: 50 mg Documented by: Nicotine (Nicoderm) 7 mg TOPICAL DAILY@1000 [facility] Last Admin: 10/22/18 09:30 Dose: 7 mg Documented by: Omeprazole (Prilosec) 20 mg PO QAMAC [facility] Last Admin: 10/22/18 07:37 Dose: 20 mg Documented by: Ondansetron HCl (Zofran) 4 mg IV Q4-6HP PRN PRN Reason: Nausea And Vomiting Potassium Chloride (Klor-Con) 40 meq PO DAILYP PRN PRN Reason: K+ < 3.5 Prazosin HCl (Minipress) 1 mg PO [facility] Last Admin: 10/21/18 20:49 Dose: 1 mg Documented by: Promethazine HCl (Phenergan) 12.5 mg PO Q6HP PRN PRN Reason: Nausea Senna/Docusate Sodium (Senna Plus Tablet) 1 tab PO [facility] Last Admin: 10/21/18 20:51 Dose: Not Given Documented by: Simvastatin (Zocor) 20 mg PO [facility] Last Admin: 10/21/18 20:51 Dose: 20 mg Documented by: Sodium Chloride (Saline Flush) 10 ml IV Q8 [facility] Last Admin: 10/22/18 07:14 Dose: Not Given Documented by: Venlafaxine HCl (Effexor Xr) 150 mg PO DAILY [facility] Last Admin: 10/22/18 09:23 Dose: 150 mg Documented by: Medical - PN: A/P - Time Spent With Patient Total time spent is greater than 50% in coordination of care (as documented) at patient's floor/unit and/or counseling patient: - Narrative A/P Narrative: A: *Acute hypovolemic hyponatremia: likely secondary to thiazide/low salt intake and recent diarrhea leading to solute loss -Improved and stable. DC thiazide very high risk seizure in the setting of seizure disorder and hyponatremia. -Urine osmolality< serum consistent with NONSIADH state. *Acute gastroenteritis with nausea and mild diarrhea. Clinically improving. Diarrhea resolved. *Right lateral ankle/fibular fracture-nonoperative as per ER physician. Will be on supportive boots. Continue pain management *Suboptimally controlled hypertension: stable on norvasc *Fungal intertrigo-continue anti fungal *h/o Sz d/o: *Anxiety disorder: continue Effexor/trazodone/BuSpar *Hyperlipidemia: on statin *Degenerative joint disease: continue home dose hydrocodone *Active smoking/tobacco dependence: Nicotine patch *Hypertension: on metoprolol/losartan/thiazide at home Plan: -continue telemetry monitoring -DC thiazide, started amlodipine -restart home medications except for thiazide in light of hyponatremia. Ini tiate amlodipine. -Fracture pain control, cont boot, f/u with Ortho -PT/OT -Case management -Smoking cessation counseling -d/c planning to [facility] vs SNF -ppx: heparin Full code Medical - PN: Qual - VTE Deep Vein Thrombosis/Pulmonary Embolism Present on Admission: No
[2018-10-22] MEDS ORDERED: NICOTINE 7 MG PATCH TOPICAL SCH (10:00)
[2018-10-22] MEDS ORDERED: diphenhydrAMINE 25 MG CAPSULE PO PRN (10:03)
== END 2018-10-22 14:10 | disposition home health service (06) | DRG 641 ==
LOC: ED 11:08 → ICU 15:10
PROVIDERS: ADMIT Internal Medicine; ATTEND Internal Medicine

== ENCOUNTER 2021-11-28 12:34 | Inpatient (IN) ==
[2021-11-28] MEDS ORDERED: ACETAMINOPHEN 325 MG TABLET PO ONE (13:02)
[2021-11-28 13:23] LABS: POC Blood Urea Nitrogen 13 mg/dL (6-20); POC CO2 31 mmol/L (22-30); POC Calcium, Ionized 1.01 mmEq/L (1.16-1.32); POC Chloride 83 mEq/L (96-108); POC Glucose, Random 111 mg/dL (70-105); POC Hematocrit 51 % (36-48); POC Potassium 3.2 mEql/L (3.3-5.1); POC Sodium 123 mEq/L (133-145)
[2021-11-28 14:25] LABS: ALT/SGPT 11 U/L (<40); AST/SGOT 25 U/L (<32); Albumin 4.4 gm/dL (3.2-5.2); Albumin/Globulin Ratio 1.4 (1.0-2.3); Alkaline Phosphatase 107 U/L (39-117); Bilirubin,Total 0.5 mg/dL (0.1-1.0); Blood Urea Nitrogen 10 mg/dL (8-23); Calcium 9.3 mg/dL (8.6-10.4); Carbon Dioxide 24 mmol/L (22-30); Chloride 81 mmol/L (96-108); Globulin 3.2 gm/dL (2.2-3.7); Glomerular Filtration Rate 60; Glucose 106 mg/dL (70-105)
[2021-11-28 14:31] LABS: Basophils # (Auto) 0.02 K/mcL (0.00-0.30); Basophils % (Auto) 0.4 % (0.0-2.0); Eosinophils # (Auto) 0.01 K/mcL (0.00-0.70); Eosinophils % (Auto) 0.2 % (0.0-7.0); Hematocrit 45.8 % (34.1-44.9); Hemoglobin 16.1 g/dL (11.2-15.7); Lymphocytes # (Auto) 0.51 K/mcL (1.50-4.80); Lymphocytes % (Auto) 9.3 % (15.5-49.0); Mean Cell Volume 85.1 fL (80.0-100.0); Mean Corpuscular HGB Conc 35.2 g/dL (31.0-36.0); Mean Platelet Volume 10.5 fL (7.4-10.4); Monocytes # (Auto) 0.41 K/mcL (0.10-0.90); Monocytes % (Auto) 7.5 % (1.0-12.0); Neutrophils % (Auto) 82.6 % (38.0-78.0); Platelet Count 286 K/mcL (140-440); RBC 5.38 M/mcL (3.59-5.38); WBC 5.5 K/mcL (4.5-11.0)
--- NOTE | 2021-11-28 14:32 | Cat Scan Report ---
History: Multiple recent falls, seizure, thoracic and lumbar spine pain TECHNIQUE: The patient was imaged from the lower cervical spine through the sacrum. Images of the thoracic and lumbar spine were obtained separately. Sagittal and coronal reformats were created of both the thoracic and lumbar spine. The radiation exposure was limited using dose reduction technology. FINDINGS: Thorax: A mild kyphoscoliotic curvature is present. The apex is to the right at T10. Severe disc space narrowing is present at C5-6, T5-6, T6-7, T8-9 and T12-L1 with moderate disc space narrowing at T3-4, T7-8, T9-10, T10-11 and T11-12. There is a posterior bulge at T11-12. No disc herniation is identified on this nonenhanced study. There are small osteophytes forming around the margins of the disks throughout the cervical and thoracic spine. There is irregularity of the endplates at multiple levels due to chronic degeneration. There is a large Schmorl's node along the superior endplate of T10. There is a mild depression deformity through the superior endplate into the Schmorl's node. This is of undetermined age. There is no surrounding edema or paraspinal hematoma. No other fracture is present. There is no evidence of malignancy. Central canal is normal in caliber. There is no apparent neural foraminal stenosis. Lumbar spine: Severe disc space narrowing is present at T12-L1 L2-3 and L5-S1 with moderate narrowing at L3-4. L4-5 disc is normal in height but there is 5 mm grade 1 spondylolisthesis due to moderate arthritis in the facets. There is also moderate arthritis in the facets bilaterally at L5-S1. There is a large Schmorl's node along the inferior endplate of L1 and small Schmorl's node along the superior endplate of L4. There is no fracture in the lumbar spine. A mild levoscoliotic curvature is present. The sacrum and SI joints are normal. There is reactive sclerosis around the margins of the degenerated discs. Moderate amount of atherosclerotic plaque is present along the wall of a normal caliber abdominal aorta. IMPRESSION: Mild depression fracture through the superior endplate of T10 which involves a Schmorl's node. This is probably old. There is no acute fracture is seen within the thoracic or lumbar spine Severe degenerative disc disease at multiple levels as described above Grade 1 spondylolisthesis at L4-5 with an associated small to intermediate sized broad-based posterior bulge Dr. Yancey was called with the report Interpreted and Authenticated by: Amarjit Mari 11/28/21
--- NOTE | 2021-11-28 14:35 | Cat Scan Report ---
History: Multiple recent falls TECHNIQUE: The brain was imaged without contrast in axial plane at 2.5 mm intervals. Sagittal and coronal reformats were created. The radiation exposure was limited using dose reduction technology. FINDINGS: There is mild generalized cerebral atrophy. There are mild ill-defined zones of decreased attenuation in the white matter, predominantly involving the frontal lobes. There is no evidence of an infarct. No hemorrhage or cerebral edema are present. Ventricles are normal in size allowing fracture feet. There are a few physiologic calcifications in the globus pallidus bilaterally. No abnormal extra-axial fluid collection is present. Bone windows show no skull fracture. There is mucosal thickening along the parham of several ethmoid air cells bilaterally. Comparison with the prior head CT done on 10/03/21 shows no change. IMPRESSION: Stable age-related degenerative changes and no evidence of acute head injury or stroke Dr. Yancey was called with the report Interpreted and Authenticated by: Amarjit Mari 11/28/21
--- NOTE | 2021-11-28 14:38 | XRay Report ---
HISTORY: Chest pain, bilateral arm pain, smoker FINDINGS: There is subtle interstitial fibrosis in the right upper lobe, adjacent to the right upper hilum. There is no evidence of pneumonia, mass or congestive heart failure. The heart size is normal. There is no pleural effusion. No chest wall lesion is seen. Aorta is tortuous. Mild arthritis is present in the shoulders. Comparison with the prior exam from 10/03/21 shows the heart is smaller today. IMPRESSION: Subtle pulmonary fibrosis in right upper lobe and no acute abnormality Interpreted and Authenticated by: Amarjit Mari 11/28/21
--- NOTE | 2021-11-28 14:39 | XRay Report ---
HISTORY: Recent falls, left shoulder pain FINDINGS: No fracture or dislocation are present. The humeral head is mildly subluxed superiorly. This is indirect evidence of a rotator cuff tear. There is a spur along the inferior medial border of the humeral head. The acromioclavicular joint is normal. The visualized ribs are normal. IMPRESSION: No fracture Interpreted and Authenticated by: Amarjit Mari 11/28/21
--- NOTE | 2021-11-28 14:43 | XRay Report ---
HISTORY: Multiple recent falls with right knee injury FINDINGS: No fracture or dislocation are present. There is mild osteoarthritis. There is a small spur along the medial border of the medial femoral condyle and another along the top of the patella. There is no joint effusion. Joint spaces are normal in width. IMPRESSION: Mild osteoarthritis and no fracture Interpreted and Authenticated by: Amarjit Mari 11/28/21
[2021-11-28] MEDS ORDERED: morphine 4 MG/ML VIAL IV ONE (15:07)
--- NOTE | 2021-11-28 16:07 | Emergency Department Note ---
HPI General Chief complaint: Extremity Injury, Upper Stated complaint: Bilateral Arm Pain Time Seen by Provider: 11/28/21 12:44 Source: patient Mode of arrival: ambulatory Limitations: no limitations History of Present Illness HPI Narrative: Narrative: 81-year-old female presents for evaluation of left shoulder pain. She reports multiple falls over the past 24 hours, she is unsure why. She denies headache dizziness weakness numbness or tingling. She denies chest pain or shortness of breath. She denies abdominal pain or nausea. She denies dysuria or frequency. She reports the pain in the shoulder is worse with movement. She denies exertional symptoms. Related Data Home Medications Medication Instructions Recorded Confirmed venlafaxine 150 mg 150 mg PO DAILY 05/21/15 11/28/21 capsule,extended release 24 hr omeprazole 20 mg capsule,delayed 20 mg PO DAILY 10/19/18 11/28/21 release metoprolol succinate 50 mg 50 mg PO BID 10/20/18 11/28/21 tablet,extended release 24 hr atorvastatin 10 mg tablet 1 tab PO QDAY 11/28/21 11/28/21 carvedilol 12.5 mg tablet 1 tab PO BID 11/28/21 11/28/21 irbesartan 300 mg tablet 1 tab PO QDAY 11/28/21 11/28/21 lamotrigine 25 mg tablet 2 tab PO BID 11/28/21 11/28/21 Previous Rx's Medication Instructions Recorded amlodipine 5 mg tablet 5 mg PO DAILY #30 tab 10/21/18 Allergies Allergy/AdvReac Type Severity Reaction Status Date / Time Penicillins Allergy Mild Hives Verified 06/15/21 11:36 Sulfa (Sulfonamide Allergy Mild Hives Verified 06/15/21 11:36 Antibiotics) Iodinated Contrast Media Allergy Unknown Unknown Verified 06/15/21 11:36 [Iodinated Contrast- Oral and IV Dye] Review of Systems ROS ROS Narrative: Narrative: All systems ED: reviewed and negative except as stated. [facility] Narrative Patient History Narrative: Narrative: Medical/Surgical/Family History All Active Problems (Updated 11/28/21 @ 16:09 by Zeferino Yancey DO) Supraglottitis (Acute) Thyroglossal duct cyst (Acute) Mechanical dysphagia (Acute) Gastroenteritis (Acute) Hyponatremia (Acute) Right fibular fracture (Acute) Acute hyponatremia (Acute) Foot sprain (Acute) Ankle sprain and strain (Acute) Avulsion fracture of ankle (Acute) Acute bronchitis (Acute) Chest pain (Acute) Sinusitis (Acute) Abscess (Acute) Acute bacterial conjunctivitis (Acute) Benign paroxysmal positional vertigo (Acute) Acute hyponatremia (Acute) Multiple falls (Acute) Injury of shoulder (Acute) Medical History (Updated 11/28/21 @ 16:09 by Zeferino Yancey DO) Mechanical dysphagia Supraglottitis Thyroglossal duct cyst Social History Smoking Status: Current every day smoker Alcohol Intake Frequency: does not drink Substance Use: does not use Exam Narrative Narrative: Narrative: General Limitations: no limitations General appearance: Present alert and in no apparent distress Head Head: Present atraumatic and normocephalic Eye Eye: Present normal appearance and PERRL; Absent nystagmus ENT ENT: Present normal exam, normal oropharynx and mucous membranes moist Neck Neck: Present normal inspection and full ROM Chest Chest: Present normal inspection and symmetric chest wall rise Respiratory Respiratory: Absent respiratory distress Cardiovascular Cardiovascular: Present regular rate and normal rhythm Adbominal Abdominal: Present soft; Absent tenderness Extremities Extremities: Present normal inspection, full ROM and tenderness (Tender over the left shoulder, right kneecap); Absent pedal edema Back Back: Present normal inspection, full ROM and tenderness (Tender in the thoracolumbar junction in the midline, no step-offs, no crepitus); Absent CVA tenderness (R) or CVA tenderness (L) Neurological Neurological: Present alert, oriented X3 and CN II-XII intact; Absent motor sensory deficit Psychiatric Psychiatric: Present normal affect and normal mood Skin Skin: Present warm (WNL), dry and normal color Course Vital Signs Vital signs: Vital Signs Temperature 98.6 F 11/28/21 12:35 Pulse Rate 77 11/28/21 12:35 Respiratory Rate 18 11/28/21 12:35 Blood Pressure 136/73 11/28/21 12:35 Pulse Oximetry (%) 96 11/28/21 12:35 Temperature 98.6 F 11/28/21 12:35 Pulse Rate 63 11/28/21 15:57 Respiratory Rate 21 11/28/21 15:57 Blood Pressure 117/80 11/28/21 15:03 Pulse Oximetry (%) 90 11/28/21 15:57 [facility]DM Narrative Medical decision making narrative: Narrative: Patient reports multiple falls. Found to be hyponatremic. No clear etiology, has not had polydipsia. Will be admitted for work-up for this. She has no fractures seen on x-rays, Will place in sling for comfort. Hyponatremia is nonsevere and she does not need hypertonic saline Lab Data Lab results reviewed: Yes I reviewed the patient's lab results. Result diagrams: 11/28/21 13:58 11/28/21 13:57 Labs: Lab Results 11/28/21 11/28/21 11/28/21 Range/Units 13:18 13:57 13:58 WBC 5.5 (4.5-11.0) K/mcL RBC 5.38 (3.59-5.38) M/mcL Hgb 16.1 H (11.2-15.7) g/dL Hct 45.8 H (34.1-44.9) % POC Hct 51 H (36-48) % MCV 85.1 (80.0-100.0) fL MCH 29.9 (26.0-34.0) pg MCHC 35.2 (31.0-36.0) g/dL RDW 13.0 (11.5-14.5) % Plt Count 286 (140-440) K/mcL MPV 10.5 H (7.4-10.4) fL Neut % (Auto) 82.6 H (38.0-78.0) % Lymph % (Auto) 9.3 L (15.5-49.0) % [place] % (Auto) 7.5 (1.0-12.0) % Eos % (Auto) 0.2 (0.0-7.0) % Baso % (Auto) 0.4 (0.0-2.0) % Lymph # (Auto) 0.51 L (1.50-4.80) K/mcL [place] # (Auto) 0.41 (0.10-0.90) K/mcL Eos # (Auto) 0.01 (0.00-0.70) K/mcL Baso # (Auto) 0.02 (0.00-0.30) K/mcL Absolute Neutrophils 4.54 (1.80-8.00) K/mcL POC Sodium 123 L (133-145) mEq/L Sodium 123 L (133-145) mmol/L POC Potassium 3.2 L (3.3-5.1) mEql/L Potassium 3.5 (3.3-5.1) mmol/L POC Chloride 83 L (96-108) mEq/L Chloride 81 L (96-108) mmol/L Carbon Dioxide 24 (22-30) mmol/L POC Total CO2 31 H (22-30) mmol/L Anion Gap 18.0 H (8.0-16.0) POC BUN 13 (6-20) mg/dL BUN 10 (8-23) mg/dL Creatinine 0.9 (0.6-1.1) mg/dL POC Creatinine 1.0 (0.6-1.2) mg/dL GFR Calculation 60 Glucose 106 H (70-105) mg/dL POC Glucose 111 H (70-105) mg/dL Calcium 9.3 (8.6-10.4) mg/dL POC WB Ioniz Calcium 1.01 L (1.16-1.32) mmEq/L Total Bilirubin 0.5 (0.1-1.0) mg/dL AST 25 (<32) U/L ALT 11 (<40) U/L Alkaline Phosphatase 107 (39-117) U/L Total Protein 7.6 (5.9-8.4) gm/dL Albumin 4.4 (3.2-5.2) gm/dL Globulin 3.2 (2.2-3.7) gm/dL Albumin/Globulin Ratio 1.4 (1.0-2.3) POC Troponin I 0.02 (0.02-0.08) ng/mL EKG Data EKG #1: EKG attestation: Yes I reviewed and interpreted this EKG. EKG results narrative: Sinus rhythm at a rate of 73. Normal axis. QTC 454. No acute appearing ST-T changes. Normal EKG. Discharge Plan Patient/Caregiver Discharge Instructions Pt seen by ENDOSCOPY REGISTERED NURSE/PA only: No Clinical Impression: Acute hyponatremia, Multiple falls, Injury of shoulder Patient Disposition: Xfer As Inpt ([facility]) Follow up with: Ivett Field ARNP [Primary Care Provider] - Prescriptions: No Action venlafaxine 150 MG capsule,extended release 24hr 150 mg PO DAILY 0RF omeprazole 20 MG capsule 20 mg PO DAILY 0RF metoprolol succinate 50 MG tablet extended release 24 hr 50 mg PO BID 0RF amlodipine 5 MG tablet 5 mg PO DAILY Qty: 30 0RF carvedilol 12.5 mg tablet 1 tab PO BID 0RF atorvastatin 10 mg tablet 1 tab PO QDAY 0RF lamotrigine 25 mg tablet 2 tab PO BID 0RF irbesartan 300 mg tablet 1 tab PO QDAY 0RF
[2021-11-28] MEDS ORDERED: HYDROcodone/APAP 5/325MG TABLET PO ONE ×2 (17:31→17:42)
[2021-11-28] MEDS ORDERED: ONDANSETRON 4 MG/2 ML VIAL IV PRN (17:52)
[2021-11-28] MEDS ORDERED: POTASSIUM CHLORIDE 20 MEQ TABLET PO ONE (18:34)
[2021-11-28] MEDS ORDERED: 0.9 % SODIUM CHLORIDE 1,000 ML BAG IV ONE (18:34)
[2021-11-28] MEDS ORDERED: 0.9 % SODIUM CHLORIDE 1,000 ML IV ONE (18:45)
[2021-11-28] MEDS: lamoTRIgine 25 MG TABLET PO SCH (20:11)
[2021-11-28] MEDS: DOCUSATE SODIUM 100 MG CAPSULE PO SCH (20:11)
[2021-11-28] MEDS: SENNOSIDES 1 TABLET PO SCH (20:11)
[2021-11-28] MEDS: 0.9 % SODIUM CHLORIDE 10 ML SYRINGE IV SCH (20:12)
--- NOTE | 2021-11-28 20:29 | Internal Med History&Physical ---
HPI History of Present Illness Patient information: Note initiated : 11/28/21 at 8:26 pm Service Date, if different from initiated Date: [] Patient: Gwen Slaughter a 81 y/o F admitted on 11/28/21 for Bilateral Arm Pain. Chief Complaint: [] Chief complaint: weakness and falls. Poor oral intake History of present illness: Ms. Slaughter is a 81 year old F with past medical history of hypertension hyperlipidemia previous admission for hyponatremia Anxiety disorder degenerative joint disease presented to the ER with multiple falls recently. She lives alone. Normally she is able to perform activities of daily living independently. She also reports worsening pain in both her armpits and left shoulder. She has poor dentition and lots of missing teeth, she says it does not prevent her from eating a normal diet. Says she has been avoiding salt completely. Denies any nausea vomiting or diarrhea. Constitutional Constitutional: Absent anorexia, chills, fatigue, fever(s), headache(s), lethargy, malaise or night sweats Cardiovascular Cardiovascular: Absent chest pain, chest pain at rest, diaphoresis, irregular heart rhythm or lightheadedness Respiratory Respiratory: Absent hemoptysis, wheezing or excessive phlegm production Gastrointestinal Gastrointestinal: Absent diarrhea, hematemesis, melena, nausea or vomiting Genitourinary Genitourinary: Absent dysuria Neurological Neurological: Absent abnormal gait, abnormal speech, confusion, dizziness or headache(s) PFSH PFSH All Active Problems Supraglottitis (Acute) Thyroglossal duct cyst (Acute) Mechanical dysphagia (Acute) Gastroenteritis (Acute) Hyponatremia (Acute) Right fibular fracture (Acute) Acute hyponatremia (Acute) Foot sprain (Acute) Ankle sprain and strain (Acute) Avulsion fracture of ankle (Acute) Acute bronchitis (Acute) Chest pain (Acute) Sinusitis (Acute) Abscess (Acute) Acute bacterial conjunctivitis (Acute) Benign paroxysmal positional vertigo (Acute) Acute hyponatremia (Acute) Multiple falls (Acute) Injury of shoulder (Acute) Medical History Mechanical dysphagia Supraglottitis Thyroglossal duct cyst Social History alcohol intake frequency: does not drink substance use type: does not use MEDS/ALLERGIES Home Medications and Allergies Home Medications Medication Instructions Recorded Confirmed Type venlafaxine 150 mg 150 mg PO DAILY 05/21/15 11/28/21 History capsule,extended release 24 hr omeprazole 20 mg capsule,delayed 20 mg PO DAILY 10/19/18 11/28/21 History release amlodipine 5 mg tablet 5 mg PO DAILY #30 tab 10/21/18 11/28/21 Rx atorvastatin 10 mg tablet 1 tab PO QDAY 11/28/21 11/28/21 History carvedilol 12.5 mg tablet 1 tab PO BID 11/28/21 11/28/21 History irbesartan 300 mg tablet 1 tab PO QDAY 11/28/21 11/28/21 History lamotrigine 25 mg tablet 2 tab PO BID 11/28/21 11/28/21 History Allergies Allergy/AdvReac Type Severity Reaction Status Date / Time Penicillins Allergy Mild Hives Verified 06/15/21 11:36 Sulfa (Sulfonamide Allergy Mild Hives Verified 06/15/21 11:36 Antibiotics) Iodinated Contrast Media Allergy Unknown Unknown Verified 06/15/21 11:36 [Iodinated Contrast- Oral and IV Dye] EXAM Constitutional Vitals: Temp Pulse Resp BP Pulse Ox 98.6 F 64 20 114/57 95 11/28/21 19:30 11/28/21 19:30 11/28/21 19:30 11/28/21 19:30 11/28/21 19:52 General appearance: average body habitus, cooperative and no acute distress Head Head exam: Present atraumatic and normocephalic Eye Eye exam: Present normal appearance ENT ENT exam: Present mucous membranes moist Respiratory Respiratory exam: Present normal respiratory exam and CTAB; Absent accessory muscle use, rales, respiratory distress, stridor or wheezes Cardiovascular Cardiovascular exam: Present normal rate and rhythm and RRR; Absent bradycardia, diastolic murmur, gallop, irregular rhythm or rubs GI/Abdominal GI/Abdominal exam: Present normal bowel sounds and soft; Absent distended, guarding or rebound Expanded Lower Extremity Exam Hip exam: Present normal inspection; Absent swelling Back Exam Back exam: Present normal inspection; Absent CVA tenderness (L), CVA tenderness (R), paraspinal tenderness or vertebral tenderness Neurological Exam Neurological exam: Present alert and oriented X3; Absent abnormal gait or motor sensory deficit DATA Data Completed and Pending Labs: Labs from last 24 hours 11/28/21 11/28/21 11/28/21 18:29 13:58 13:57 WBC 5.5 RBC 5.38 Hgb 16.1 H Hct 45.8 H POC Hct MCV 85.1 MCH 29.9 MCHC 35.2 RDW 13.0 Plt Count 286 MPV 10.5 H Neut % (Auto) 82.6 H Lymph % (Auto) 9.3 L [place] % (Auto) 7.5 Eos % (Auto) 0.2 Baso % (Auto) 0.4 Lymph # (Auto) 0.51 L [place] # (Auto) 0.41 Eos # (Auto) 0.01 Baso # (Auto) 0.02 Absolute Neutrophils 4.54 POC Sodium Sodium 123 L POC Potassium Potassium 3.5 POC Chloride Chloride 81 L Carbon Dioxide 24 POC Total CO2 Anion Gap 18.0 H POC BUN BUN 10 Creatinine 0.9 POC Creatinine GFR Calculation 60 Glucose 106 H POC Glucose Calcium 9.3 POC WB Ioniz Calcium Total Bilirubin 0.5 AST 25 ALT 11 Alkaline Phosphatase 107 Total Protein 7.6 Albumin 4.4 Globulin 3.2 Albumin/Globulin Ratio 1.4 Urine Osmolality 134 POC Troponin I 11/28/21 13:18 WBC RBC Hgb Hct POC Hct 51 H MCV MCH MCHC RDW Plt Count MPV Neut % (Auto) Lymph % (Auto) [place] % (Auto) Eos % (Auto) Baso % (Auto) Lymph # (Auto) [place] # (Auto) Eos # (Auto) Baso # (Auto) Absolute Neutrophils POC Sodium 123 L Sodium POC Potassium 3.2 L Potassium POC Chloride 83 L Chloride Carbon Dioxide POC Total CO2 31 H Anion Gap POC BUN 13 BUN Creatinine POC Creatinine 1.0 GFR Calculation Glucose POC Glucose 111 H Calcium POC WB Ioniz Calcium 1.01 L Total Bilirubin AST ALT Alkaline Phosphatase Total Protein Albumin Globulin Albumin/Globulin Ratio Urine Osmolality POC Troponin I 0.02 A/P Narrative A/P Narrative: 81-year-old female with history of hypertension hyperlipidemia, anxiety, degenerative joint disease admitted for frequent falls and hyponatremia. #Hyponatremia Suspect this is from dehydration considering her hemoglobin of 16. Her sodium as well as chloride and potassium is low which points to poor oral intake. Serum osmolarity and urine sodium and urine osmolarity ordered. TSH and cortisol levels ordered. Normal saline at 75 cc an hour. Regular diet. Anticipate correction over the next few days. Q 6 hour BMP to monitor sodium. #Frequent falls She had a extensive work-up in ER with chest x-ray, head CT, shoulder and knee x-rays, thoracic and lumbar spine CT scans. Head CT ruled out any stroke or bleeding. Knee x-ray show mild osteoarthritis bilaterally. No acute fracture noted on thoracic or lumbar spine CT scan. Complains of shoulder pain. Usually takes Tylenol at home. Continue as needed Tylenol. [place] for severe pain every 8 hours as needed. #Bilateral armpit folliculitis/cellulitis Allergic to penicillin. Started clindamycin 300 mg every 6 hours. Will treat for 7 days and monitor progression. #Erythrocytosis-likely from dehydration. Trend CBC daily. DVT prophylaxis-Lovenox CODE STATUS-DO NOT RESUSCITATE. Discussed with patient, Time Spent With Patient Time: Total time spent is greater than 50% in coordination of care (as documented) at patient's floor/unit and/or counseling patient: Total time spent with greater than 50% in coordination of care (as documented) at patient's floor/unit and/or counseling patient:: 50 - 70 minutes
[2021-11-28] MEDS ORDERED: ACETAMINOPHEN 500 MG TABLET PO ONE (20:55)
[2021-11-28] MEDS ORDERED: DOCUSATE SODIUM 100 MG CAPSULE PO SCH (21:00)
[2021-11-28] MEDS ORDERED: SENNOSIDES 1 TABLET PO SCH (21:00)
[2021-11-28] MEDS: ACETAMINOPHEN 500 MG TABLET PO PRN (21:08)
[2021-11-28 21:42] LABS: Blood Urea Nitrogen 16 mg/dL (8-23); Calcium 8.5 mg/dL (8.6-10.4); Carbon Dioxide 27 mmol/L (22-30); Chloride 84 mmol/L (96-108); Glomerular Filtration Rate 42; Glucose 143 mg/dL (70-105)
[2021-11-28] MEDS ORDERED: 0.9 % SODIUM CHLORIDE 10 ML SYRINGE IV SCH (22:00)
[2021-11-28] MEDS: CLINDAMYCIN 150 MG CAPSULE PO SCH (23:38)
[2021-11-29] MEDS: HYDROcodone/APAP 5/325MG TABLET PO PRN ×4 (01:40→21:51)
[2021-11-29] MEDS: CLINDAMYCIN 150 MG CAPSULE PO SCH ×4 (05:40→23:27)
[2021-11-29] MEDS: 0.9 % SODIUM CHLORIDE 10 ML SYRINGE IV SCH ×3 (05:50→20:30)
[2021-11-29 06:19] LABS: Basophils # (Auto) 0.01 K/mcL (0.00-0.30); Basophils % (Auto) 0.3 % (0.0-2.0); Eosinophils # (Auto) 0.03 K/mcL (0.00-0.70); Eosinophils % (Auto) 0.8 % (0.0-7.0); Hematocrit 39.3 % (34.1-44.9); Hemoglobin 13.7 g/dL (11.2-15.7); Lymphocytes # (Auto) 0.69 K/mcL (1.50-4.80); Lymphocytes % (Auto) 18.8 % (15.5-49.0); Mean Cell Volume 87.5 fL (80.0-100.0); Mean Corpuscular HGB Conc 34.9 g/dL (31.0-36.0); Mean Platelet Volume 10.5 fL (7.4-10.4); Monocytes % (Auto) 13.6 % (1.0-12.0); Neutrophils % (Auto) 66.5 % (38.0-78.0); Platelet Count 219 K/mcL (140-440); RBC 4.49 M/mcL (3.59-5.38); Red Cell Distribution Width 13.2 % (11.5-14.5); WBC 3.7 K/mcL (4.5-11.0)
[2021-11-29 06:39] LABS: Blood Urea Nitrogen 23 mg/dL (8-23); Calcium 8.5 mg/dL (8.6-10.4); Carbon Dioxide 24 mmol/L (22-30); Chloride 87 mmol/L (96-108); Glomerular Filtration Rate 60; Glucose 96 mg/dL (70-105); Thyroid Stimulating Hormone 1.65 uIU/mL (0.27-5.01)
[2021-11-29] MEDS: amLODIPine 5 MG TABLET PO SCH (09:17)
[2021-11-29] MEDS: lamoTRIgine 25 MG TABLET PO SCH ×3 (09:17→20:28)
[2021-11-29] MEDS: ENOXAPARIN 40 MG/0.4 ML SYRINGE SQ SCH (09:17)
[2021-11-29] MEDS: VENLAFAXINE 150 MG CAP.XL.24H PO SCH (09:18)
[2021-11-29] MEDS: ATORVASTATIN 10 MG TABLET PO SCH (09:18)
[2021-11-29] MEDS: OMEPRAZOLE 20 MG CAPSULE PO SCH (09:18)
[2021-11-29] MEDS: CARVEDILOL 12.5 MG TABLET PO SCH ×2 (09:18→17:08)
[2021-11-29] MEDS: DOCUSATE SODIUM 100 MG CAPSULE PO SCH ×2 (09:19→20:30)
[2021-11-29] MEDS ORDERED: FLUCONAZOLE 150 MG TABLET PO ONE (10:35)
--- NOTE | 2021-11-29 10:35 | Internal Med Progress Note ---
SUBJECTIVE Subjective Patient information: Note initiated : 11/29/21 at 10:32 am Service Date, if different from initiated Date: [] Patient: Gwen Slaughter a 81 y/o F admitted on 11/28/21 for Bilateral Arm Pain. Chief Complaint: [] Principal diagnosis: Hyponatremia Interval history: Ms. Slaughter is a 81 year old F with past medical history of hypertension hyperlipidemia previous admission for hyponatremia Anxiety disorder degenerative joint disease presented to the ER with multiple falls recently. She lives alone. Normally she is able to perform activities of daily living independently. She also reports worsening pain in both her armpits and left shoulder. She has poor dentition and lots of missing teeth, she says it does not prevent her from eating a normal diet. Says she has been avoiding salt completely. Denies any nausea vomiting or diarrhea. 11/29, Doing well. Some L shoulder pain which is chronic. No new sx Constitutional Vitals: Vital Signs Temp Pulse Resp BP Pulse Ox 98.8 F 65 20 160/80 96 11/29/21 09:15 11/29/21 09:15 11/29/21 09:15 11/29/21 09:15 11/29/21 09:15 Period Temp Pulse Resp BP Sys/Spencer Pulse Ox Last 24 Hr 96.4 F-98.8 F 58-77 14-23 105-160/49-92 90-98 Intake and Output 11/28/21 11/29/21 11/29/21 21:59 05:59 13:59 Intake Total 257 203 1757 Output Total 50 850 Balance 240 800 574 Weight 57.606 kg Intake & Output: Intake & Output 11/28/21 11/29/21 11/29/21 21:59 05:59 13:59 Intake Total 430 250 3753 Output Total 50 850 Balance 240 800 574 Weight 57.606 kg Intake: IV 1024 Sodium Chloride 0.9% 1,000 ml @ 1024 75 mls/hr IV ONCE ONE Rx#: [id number] Oral 240 850 400 Output: Void Amount 50 850 Other: Meal Dinner egg salad sandwich, potato chips, cottage cheese Percent of Meal Consumed 100% 100% Feeding Ability Independent Urine Appearance Clear Urine Color Pale Bright Yellow # Voids 1 General appearance: average body habitus, cooperative and no acute distress Head Head exam: Present atraumatic and normocephalic Eye Eye exam: Present normal appearance Respiratory Respiratory exam: Present normal respiratory exam and CTAB; Absent accessory muscle use, decreased breath sounds or respiratory distress Cardiovascular Cardiovascular exam: Present normal rate and rhythm and RRR; Absent bradycardia, gallop, systolic murmur or tachycardia GI/Abdominal GI/Abdominal exam: Present soft Neurological Exam Neurological exam: Present alert and oriented X3; Absent altered or motor sensory deficit Skin Additional comments: Reddish rash in both armpits. Likely from folliculitis and perhaps some fungal superinfection. OBJ DATA Labs CBC & Chem 7: 11/29/21 05:00 11/29/21 05:00 Labs: Abnormal Lab Results 11/29/21 11/29/21 11/28/21 05:00 05:00 20:50 WBC 3.7 L Hgb Hct POC Hct MPV 10.5 H Neut % (Auto) Lymph % (Auto) [place] % (Auto) 13.6 H Lymph # (Auto) 0.69 L POC Sodium Sodium 125 L 123 L POC Potassium Potassium 3.1 L POC Chloride Chloride 87 L 84 L POC Total CO2 Anion Gap Creatinine 1.2 H Glucose 143 H POC Glucose Osmolality 270 L Calcium 8.5 L 8.5 L POC WB Ioniz Calcium 11/28/21 11/28/21 11/28/21 13:58 13:57 13:18 WBC Hgb 16.1 H Hct 45.8 H POC Hct 51 H MPV 10.5 H Neut % (Auto) 82.6 H Lymph % (Auto) 9.3 L [place] % (Auto) Lymph # (Auto) 0.51 L POC Sodium 123 L Sodium 123 L POC Potassium 3.2 L Potassium POC Chloride 83 L Chloride 81 L POC Total CO2 31 H Anion Gap 18.0 H Creatinine Glucose 106 H POC Glucose 111 H Osmolality Calcium POC WB Ioniz Calcium 1.01 L Meds: Medications Acetaminophen (Acetaminophen 500 Mg Tablet) 500 mg PO Q6HP PRN; Protocol PRN Reason: Per Pain Protocol Last Admin: 11/28/21 21:08 Dose: 500 mg Documented by: Hydrocodone Bitart/Acetaminophen (Hydrocodone/Apap 5/325mg Tablet) 1 tab PO Q8 PRN; Protocol PRN Reason: severe pain Last Admin: 11/29/21 09:26 Dose: 1 tab Documented by: Amlodipine Besylate (Amlodipine 5 Mg Tablet) 5 mg PO DAILY [facility] Last Admin: 11/29/21 09:17 Dose: 5 mg Documented by: Atorvastatin Calcium (Atorvastatin 10 Mg Tablet) 10 mg PO QDAY [facility] Last Admin: 11/29/21 09:18 Dose: 10 mg Documented by: Carvedilol (Carvedilol 12.5 Mg Tablet) 12.5 mg PO BIDCC [facility] Last Admin: 11/29/21 09:18 Dose: 12.5 mg Documented by: Clindamycin HCl (Clindamycin 150 Mg Capsule) 300 mg PO Q6 [facility]; Protocol Last Admin: 11/29/21 05:40 Dose: 300 mg Documented by: Docusate Sodium (Docusate Sodium 100 Mg Capsule) 100 mg PO BID [facility] Last Admin: 11/29/21 09:19 Dose: Not Given Documented by: Enoxaparin Sodium (Enoxaparin 40 Mg/0.4 Ml Syringe) 40 mg SQ DAILY [facility] Last Admin: 11/29/21 09:17 Dose: 40 mg Documented by: Guaifenesin (Guaifenesin/Dextromethorphan Oral [place]) 10 ml PO Q4HP PRN PRN Reason: Cough Sodium Chloride (Sodium Chloride 0.9%) 2,000 mls @ 75 mls/hr IV ONCE ONE Stop: 11/29/21 21:24 Last Infusion: 11/29/21 09:10 Dose: 0 mls/hr Documented by: Lamotrigine (Lamotrigine 25 Mg Tablet) 50 mg PO BID [facility] Last Admin: 11/29/21 09:17 Dose: 50 mg Documented by: Omeprazole (Omeprazole 20 Mg Capsule) 20 mg PO DAILY [facility] Last Admin: 11/29/21 09:18 Dose: 20 mg Documented by: Ondansetron HCl (Ondansetron 4 Mg/2 Ml Vial) 4 mg IV Q6HP PRN PRN Reason: Nausea And Vomiting Senna (Sennosides 1 Tablet) 2 tab PO HS [facility] Last Admin: 11/28/21 20:11 Dose: 2 tab Documented by: Sodium Chloride (0.9 % Sodium Chloride 10 Ml Syringe) 10 ml IV Q8 [facility] Last Admin: 11/29/21 05:50 Dose: Not Given Documented by: Venlafaxine HCl (Venlafaxine 150 Mg Cap.Xl.24h) 150 mg PO DAILY [facility] Last Admin: 11/29/21 09:18 Dose: 150 mg Documented by: A/P Rafia A/P Narrative: 81-year-old female with history of hypertension hyperlipidemia, anxiety, degenerative joint disease admitted for frequent falls and hyponatremia. #Hyponatremia Suspect this is from dehydration considering her hemoglobin of 16. Her sodium as well as chloride and potassium is low which points to poor oral intake. Serum osmolarity and urine sodium and urine osmolarity ordered. TSH and cortisol levels ordered. Normal saline at 75 cc an hour. Regular diet. Anticipate correction over the next few days. Q 6 hour BMP to monitor sodium. 123->125. Continue NS #Frequent falls She had a extensive work-up in ER with chest x-ray, head CT, shoulder and knee x-rays, thoracic and lumbar spine CT scans. Head CT ruled out any stroke or bleeding. Knee x-ray show mild osteoarthritis bilaterally. No acute fracture noted on thoracic or lumbar spine CT scan. Complains of shoulder pain. Usually takes Tylenol at home. Continue as needed Tylenol. [place] for severe pain every 8 hours as needed. #Bilateral armpit folliculitis/cellulitis Allergic to penicillin. Started clindamycin 300 mg every 6 hours. Will treat for 7 days and monitor progression. 1 dose of Diflucan today. #Erythrocytosis-likely from dehydration. Trend CBC daily. DVT prophylaxis-Lovenox CODE STATUS-DO NOT RESUSCITATE. Discussed with patient, Time Spent With Patient Time: Total time spent is greater than 50% in coordination of care (as documented) at patient's floor/unit and/or counseling patient: Total time spent with greater than 50% in coordination of care (as documented) at patient's floor/unit and/or counseling patient:: 25 - 35 minutes
--- NOTE | 2021-11-29 10:37 | EKG ---
[facility] Test Date: 2021-11-28 Pat Name: Gwen Slaughter Department: ED Room: Gender: Female [employer] Operator: HS : 1940 Requested By: Zeferino Yancey Order Number: [id number] Reading MD: Aleks Urias Measurements Intervals [place] Rate: 73 P: 29 [place]: 143 QRS: -16 QRSD: 104 T: 36 QT: 412 QTc: 454 Interpretive Statements Sinus rhythm Borderline left axis deviation RSR' in V1 or V2, probably normal variant Borderline ST depression, anterolateral leads Electronically Signed On 11-29-2021 10:37:22 PDT by Aleks Urias /store/M0/[id number]
[2021-11-29] MEDS: guaiFENesin/DEXTROMETHORPHAN ORAL SOL PO PRN ×3 (11:58→21:52)
[2021-11-29] MEDS: NICOTINE 14 MG PATCH TOPICAL SCH (17:57)
[2021-11-29] MEDS: SENNOSIDES 1 TABLET PO SCH (20:30)
[2021-11-30] MEDS: guaiFENesin/DEXTROMETHORPHAN ORAL SOL PO PRN ×4 (02:25→21:16)
[2021-11-30] MEDS: HYDROcodone/APAP 5/325MG TABLET PO PRN ×4 (03:43→21:15)
[2021-11-30] MEDS: CLINDAMYCIN 150 MG CAPSULE PO SCH ×3 (05:31→17:14)
[2021-11-30] MEDS: 0.9 % SODIUM CHLORIDE 10 ML SYRINGE IV SCH ×3 (05:31→21:14)
[2021-11-30 06:45] LABS: Basophils # (Auto) 0.02 K/mcL (0.00-0.30); Basophils % (Auto) 0.5 % (0.0-2.0); Eosinophils # (Auto) 0.04 K/mcL (0.00-0.70); Hematocrit 35.9 % (34.1-44.9); Lymphocytes # (Auto) 1.35 K/mcL (1.50-4.80); Lymphocytes % (Auto) 34.2 % (15.5-49.0); Mean Cell Volume 90.7 fL (80.0-100.0); Mean Corpuscular HGB Conc 33.4 g/dL (31.0-36.0); Mean Platelet Volume 10.2 fL (7.4-10.4); Monocytes # (Auto) 0.46 K/mcL (0.10-0.90); Monocytes % (Auto) 11.6 % (1.0-12.0); Neutrophils % (Auto) 52.7 % (38.0-78.0); Platelet Count 180 K/mcL (140-440); RBC 3.96 M/mcL (3.59-5.38); Red Cell Distribution Width 13.3 % (11.5-14.5)
[2021-11-30 06:59] LABS: Blood Urea Nitrogen 14 mg/dL (8-23); Calcium 8.4 mg/dL (8.6-10.4); Carbon Dioxide 25 mmol/L (22-30); Chloride 93 mmol/L (96-108); Glomerular Filtration Rate 81; Glucose 86 mg/dL (70-105)
[2021-11-30] MEDS: ENOXAPARIN 40 MG/0.4 ML SYRINGE SQ SCH (08:06)
[2021-11-30] MEDS: OMEPRAZOLE 20 MG CAPSULE PO SCH (08:06)
[2021-11-30] MEDS: amLODIPine 5 MG TABLET PO SCH (08:07)
[2021-11-30] MEDS: CARVEDILOL 12.5 MG TABLET PO SCH ×2 (08:07→17:11)
[2021-11-30] MEDS: NICOTINE 14 MG PATCH TOPICAL SCH (08:07)
[2021-11-30] MEDS: DOCUSATE SODIUM 100 MG CAPSULE PO SCH ×2 (08:07→21:15)
[2021-11-30] MEDS: ATORVASTATIN 10 MG TABLET PO SCH (08:14)
[2021-11-30] MEDS: lamoTRIgine 25 MG TABLET PO SCH ×2 (08:14→21:14)
[2021-11-30] MEDS: VENLAFAXINE 150 MG CAP.XL.24H PO SCH (08:14)
[2021-11-30] MEDS: ONDANSETRON 4 MG/2 ML VIAL IV PRN ×2 (09:45→17:20)
[2021-11-30] MEDS ORDERED: FLU VACC QS2021-22(6MOS UP)/PF 60 MCG/0.5 ML SYRINGE IM ONE (10:00)
[2021-11-30] MEDS: ACETAMINOPHEN 500 MG TABLET PO PRN (13:12)
--- NOTE | 2021-11-30 14:51 | Internal Med Progress Note ---
SUBJECTIVE Subjective Patient information: Note initiated : 11/30/21 at 2:50 pm Service Date, if different from initiated Date: [] Patient: Gwen Slaughter a 81 y/o F admitted on 11/28/21 for Bilateral Arm Pain. Chief Complaint: [] Principal diagnosis: Hyponatremia Interval history: Ms. Slaughter is a 81 year old F with past medical history of hypertension hyperlipidemia previous admission for hyponatremia Anxiety disorder degenerative joint disease presented to the ER with multiple falls recently. She lives alone. Normally she is able to perform activities of daily living independently. She also reports worsening pain in both her armpits and left shoulder. She has poor dentition and lots of missing teeth, she says it does not prevent her from eating a normal diet. Says she has been avoiding salt completely. Denies any nausea vomiting or diarrhea. 11/29, Doing well. Some L shoulder pain which is chronic. No new sx 11/30- No new sx. feeling well. Eating well. Constitutional Vitals: Vital Signs Temp Pulse Resp BP Pulse Ox 97.6 F 61 19 142/60 95 11/30/21 08:00 11/30/21 08:00 11/30/21 08:00 11/30/21 08:00 11/30/21 08:00 Period Temp Pulse Resp BP Sys/Spencer Pulse Ox Last 24 Hr 97.0 F-98.0 F 59-64 16-20 130-158/57-68 95-98 Intake and Output 11/30/21 11/30/21 11/30/21 05:59 13:59 21:59 Intake Total 550 720 Output Total 1050 Balance -500 720 Weight 61.008 kg Patient Weight 12/01/21 05:59 Weight 61.008 kg Intake & Output: Intake & Output 11/30/21 11/30/21 11/30/21 05:59 13:59 21:59 Intake Total 550 720 Output Total 1050 Balance -500 720 Weight 61.008 kg Intake: Oral 550 720 Output: Void Amount 1050 Other: Meal Lunch Percent of Meal Consumed 100% Urine Appearance Clear Urine Color Bright Yellow Urine Odor Normal # Voids 1 # Bowel Movements 1 General appearance: average body habitus, cooperative and no acute distress Head Head exam: Present atraumatic and normocephalic Eye Eye exam: Present normal appearance Respiratory Respiratory exam: Present normal respiratory exam and CTAB; Absent accessory muscle use, decreased breath sounds or respiratory distress Cardiovascular Cardiovascular exam: Present normal rate and rhythm and RRR; Absent bradycardia, gallop, systolic murmur or tachycardia GI/Abdominal GI/Abdominal exam: Present soft Neurological Exam Neurological exam: Present alert and oriented X3; Absent altered or motor sensory deficit OBJ DATA Labs CBC & Chem 7: 11/30/21 05:18 11/30/21 05:17 Labs: Abnormal Lab Results 11/30/21 11/30/21 11/29/21 05:18 05:17 05:00 WBC 4.0 L Hgb Hct POC Hct MPV Neut % (Auto) Lymph % (Auto) Bryan % (Auto) Lymph # (Auto) 1.35 L POC Sodium Sodium 128 L 125 L POC Potassium Potassium POC Chloride Chloride 93 L 87 L POC Total CO2 Anion Gap Creatinine Glucose POC Glucose Osmolality 270 L Calcium 8.4 L 8.5 L POC WB Ioniz Calcium 11/29/21 11/28/21 11/28/21 05:00 20:50 13:58 WBC 3.7 L Hgb 16.1 H Hct 45.8 H POC Hct MPV 10.5 H 10.5 H Neut % (Auto) 82.6 H Lymph % (Auto) 9.3 L Bryan % (Auto) 13.6 H Lymph # (Auto) 0.69 L 0.51 L POC Sodium Sodium 123 L POC Potassium Potassium 3.1 L POC Chloride Chloride 84 L POC Total CO2 Anion Gap Creatinine 1.2 H Glucose 143 H POC Glucose Osmolality Calcium 8.5 L POC WB Ioniz Calcium 11/28/21 11/28/21 13:57 13:18 WBC Hgb Hct POC Hct 51 H MPV Neut % (Auto) Lymph % (Auto) Bryan % (Auto) Lymph # (Auto) POC Sodium 123 L Sodium 123 L POC Potassium 3.2 L Potassium POC Chloride 83 L Chloride 81 L POC Total CO2 31 H Anion Gap 18.0 H Creatinine Glucose 106 H POC Glucose 111 H Osmolality Calcium POC WB Ioniz Calcium 1.01 L Meds: Medications Acetaminophen (Acetaminophen 500 Mg Tablet) 500 mg PO Q6HP PRN; Protocol PRN Reason: Per Pain Protocol Last Admin: 11/30/21 13:12 Dose: 500 mg Documented by: Hydrocodone Bitart/Acetaminophen (Hydrocodone/Apap 5/325mg Tablet) 1 tab PO Q6HP PRN; Protocol PRN Reason: Muscle Pain Last Admin: 11/30/21 09:45 Dose: 1 tab Documented by: Amlodipine Besylate (Amlodipine 5 Mg Tablet) 5 mg PO DAILY [facility] Last Admin: 11/30/21 08:07 Dose: 5 mg Documented by: Atorvastatin Calcium (Atorvastatin 10 Mg Tablet) 10 mg PO QDAY [facility] Last Admin: 11/30/21 08:14 Dose: 10 mg Documented by: Carvedilol (Carvedilol 12.5 Mg Tablet) 12.5 mg PO BIDCC [facility] Last Admin: 11/30/21 08:07 Dose: 12.5 mg Documented by: Clindamycin HCl (Clindamycin 150 Mg Capsule) 300 mg PO Q6 [facility]; Protocol Last Admin: 11/30/21 12:08 Dose: 300 mg Documented by: Docusate Sodium (Docusate Sodium 100 Mg Capsule) 100 mg PO BID [facility] Last Admin: 11/30/21 08:07 Dose: 100 mg Documented by: Enoxaparin Sodium (Enoxaparin 40 Mg/0.4 Ml Syringe) 40 mg SQ DAILY [facility] Last Admin: 11/30/21 08:06 Dose: 40 mg Documented by: Guaifenesin (Guaifenesin/Dextromethorphan Oral Luiza) 10 ml PO Q4HP PRN PRN Reason: Cough Last Admin: 11/30/21 13:09 Dose: 10 ml Documented by: Lamotrigine (Lamotrigine 25 Mg Tablet) 50 mg PO BID [facility] Last Admin: 11/30/21 08:14 Dose: 50 mg Documented by: Nicotine (Nicotine 14 Mg Patch) 14 mg TOPICAL DAILY@1000 [facility] Last Admin: 11/30/21 08:07 Dose: 14 mg Documented by: Omeprazole (Omeprazole 20 Mg Capsule) 20 mg PO DAILY [facility] Last Admin: 11/30/21 08:06 Dose: 20 mg Documented by: Ondansetron HCl (Ondansetron 4 Mg/2 Ml Vial) 4 mg IV Q6HP PRN PRN Reason: Nausea And Vomiting Last Admin: 11/30/21 09:45 Dose: 4 mg Documented by: Senna (Sennosides 1 Tablet) 2 tab PO HS [facility] Last Admin: 11/29/21 20:30 Dose: 2 tab Documented by: Sodium Chloride (0.9 % Sodium Chloride 10 Ml Syringe) 10 ml IV Q8 [facility] Last Admin: 11/30/21 13:04 Dose: 10 ml Documented by: Venlafaxine HCl (Venlafaxine 150 Mg Cap.Xl.24h) 150 mg PO DAILY [facility] Last Admin: 11/30/21 08:14 Dose: 150 mg Documented by: A/P Narrative A/P Narrative: 81-year-old female with history of hypertension hyperlipidemia, anxiety, degenerative joint disease admitted for frequent falls and hyponatremia. #Hyponatremia Suspect this is from dehydration considering her hemoglobin of 16. Her sodium as well as chloride and potassium is low which points to poor oral intake. Serum osmolarity and urine sodium and urine osmolarity ordered. TSH and cortisol levels ordered. Normal saline at 75 cc an hour. Regular diet. Anticipate correction over the next few days. Q 6 hour BMP to monitor sodium. 123->125-->128. Continue NS #Frequent falls She had a extensive work-up in ER with chest x-ray, head CT, shoulder and knee x-rays, thoracic and lumbar spine CT scans. Head CT ruled out any stroke or bleeding. Knee x-ray show mild osteoarthritis bilaterally. No acute fracture noted on thoracic or lumbar spine CT scan. Complains of shoulder pain. Usually takes Tylenol at home. Continue as needed Tylenol. [place] for severe pain every 6 hours as needed. #Bilateral armpit folliculitis/cellulitis Allergic to penicillin. Started clindamycin 300 mg every 6 hours. Will treat for 7 days and monitor progression. 1 dose of Diflucan given #Erythrocytosis-likely from dehydration. Trend CBC daily.Erythrocytosis resolved. DVT prophylaxis-Lovenox CODE STATUS-DO NOT RESUSCITATE. Discussed with patient, Time Spent With Patient Time: Total time spent is greater than 50% in coordination of care (as documented) at patient's floor/unit and/or counseling patient: Total time spent with greater than 50% in coordination of care (as documented) at patient's floor/unit and/or counseling patient:: 25 - 35 minutes
[2021-11-30] MEDS: SENNOSIDES 1 TABLET PO SCH (21:15)
[2021-12-01] MEDS: CLINDAMYCIN 150 MG CAPSULE PO SCH ×3 (02:01→14:39)
[2021-12-01] MEDS: 0.9 % SODIUM CHLORIDE 10 ML SYRINGE IV SCH ×2 (05:44→14:44)
[2021-12-01 07:39] LABS: Blood Urea Nitrogen 8 mg/dL (8-23); Calcium 8.6 mg/dL (8.6-10.4); Carbon Dioxide 25 mmol/L (22-30); Chloride 93 mmol/L (96-108); Glomerular Filtration Rate 85; Glucose 84 mg/dL (70-105)
[2021-12-01] MEDS: guaiFENesin/DEXTROMETHORPHAN ORAL SOL PO PRN (07:47)
[2021-12-01] MEDS: ENOXAPARIN 40 MG/0.4 ML SYRINGE SQ SCH (07:49)
[2021-12-01] MEDS: HYDROcodone/APAP 5/325MG TABLET PO PRN (07:49)
[2021-12-01] MEDS: amLODIPine 5 MG TABLET PO SCH (07:49)
[2021-12-01] MEDS: OMEPRAZOLE 20 MG CAPSULE PO SCH (07:49)
[2021-12-01] MEDS: DOCUSATE SODIUM 100 MG CAPSULE PO SCH (07:49)
[2021-12-01] MEDS: CARVEDILOL 12.5 MG TABLET PO SCH (07:49)
[2021-12-01] MEDS: VENLAFAXINE 150 MG CAP.XL.24H PO SCH (08:02)
[2021-12-01] MEDS: NICOTINE 14 MG PATCH TOPICAL SCH (08:02)
[2021-12-01] MEDS: lamoTRIgine 25 MG TABLET PO SCH (08:02)
[2021-12-01] MEDS: ATORVASTATIN 10 MG TABLET PO SCH (08:02)
[2021-12-01] MEDS: ONDANSETRON 4 MG/2 ML VIAL IV PRN (09:24)
[2021-12-01] MEDS ORDERED: 0.9 % SODIUM CHLORIDE 1,000 ML BAG IV ONE (09:27)
[2021-12-01] MEDS ORDERED: 0.9 % SODIUM CHLORIDE 1,000 ML IV SCH (09:30)
--- NOTE | 2021-12-01 10:03 | Discharge Summary ---
Discharge Provider Provider Patient information: Note initiated : 12/01/21 at 9:56 am Service Date, if different from initiated Date: [] Patient: Gwen Slaughter a 81 y/o F admitted on 11/28/21 for Bilateral Arm Pain. Chief Complaint: [] Date of admission: 11/28/21 17:11 Discharge date: 12/01/21 Primary care physician: Ivett Field Admitting clinician: Sally Taylor Attending physician on admission: Sally Taylor Consults: 11/28/21 Consult to Physician [CONS] Stat Comment: Consulting Provider: Sally Taylor Reason For Exam: Physician to Consult Attending physician on discharge: Sally Taylor Discharging clinician: Sally Taylor Discharge Meds Discharge Medications Home Medications venlafaxine 150 mg capsule,extended release 24 hr 150 mg PO DAILY 05/21/15 [History Confirmed 11/28/21 Last Taken 05/21/15 08:00] omeprazole 20 mg capsule,delayed release 20 mg PO DAILY 10/19/18 [History Confirmed 11/28/21 Last Taken Unknown] amlodipine 5 mg tablet 5 mg PO DAILY #30 tab 10/21/18 [Rx Confirmed 11/28/21 Last Taken Unknown] atorvastatin 10 mg tablet 1 tab PO QDAY 11/28/21 [History Confirmed 11/28/21 Last Taken Unknown] carvedilol 12.5 mg tablet 1 tab PO BID 11/28/21 [History Confirmed 11/28/21 Last Taken Unknown] irbesartan 300 mg tablet 1 tab PO QDAY 11/28/21 [History Confirmed 11/28/21 Last Taken Unknown] lamotrigine 25 mg tablet 2 tab PO BID 11/28/21 [History Confirmed 11/28/21 Last Taken Unknown] clindamycin HCl 150 mg capsule 300 mg PO Q6 4 Days #32 cap 12/01/21 [Rx Last Taken Unknown] lidocaine 5 % topical patch 1 patch TOPICAL QDAY #30 ea 12/01/21 [Rx Last Taken Unknown] ondansetron 4 mg disintegrating tablet 4 mg PO Q8H PRN #30 tab 12/01/21 [Rx Last Taken Unknown] COURSE Hospital Course Hospital course: Ms. Slaughter is a 81 year old F with past medical history of hypertension hyperlipidemia previous admission for hyponatremia Anxiety disorder degenerative joint disease presented to the ER with multiple falls recently. She lives alone. Normally she is able to perform activities of daily living independently. She also reports worsening pain in both her armpits and left shoulder. She has poor dentition and lots of missing teeth, she says it does not prevent her from eating a normal diet. Says she has been avoiding salt completely. Denies any nausea vomiting or diarrhea. 11/29, Doing well. Some L shoulder pain which is chronic. No new sx 11/30- No new sx. feeling well. Eating well 12/01- L armpit cellulitis has resolved. R armpit cellulitis appears much better. No new sx. She is ambulating well and feels strong enough to go home. Discharge diagnosis: Hyponatremia, Intertrigo and cellulitis of armpits bilaterally Secondary discharge diagnosis: Bilateral shoulder arthritis Pertinent studies/significant findings: 81-year-old female with history of hypertension hyperlipidemia, anxiety, degenerative joint disease admitted for frequent falls and hyponatremia. #Hyponatremia Suspect this is from dehydration considering her hemoglobin of 16. Her sodium as well as chloride and potassium is low which points to poor oral intake. Hypoosmolar serum indicates poor oral intak. Normal TSH and cortisol level Her serum sodium levels improved slowly with saline infusion at 75 cc an hour. She also is eating salt rich food. Advised to eat extra salt after discharge. At the time of discharge her sodium level is 128. We will discharge her with some oral sodium tablets 1 g twice daily for 2 weeks. #Frequent falls She had a extensive work-up in ER with chest x-ray, head CT, shoulder and knee x-rays, thoracic and lumbar spine CT scans. Head CT ruled out any stroke or bleeding. Knee x-ray show mild osteoarthritis bilaterally. No acute fracture noted on thoracic or lumbar spine CT scan. Complains of shoulder pain. Usually takes Tylenol at home. Continue as needed Tylenol. As needed lidocaine patch on discharge Advised to follow-up with PCP/Ortho for steroid injections #Bilateral armpit folliculitis/cellulitis Allergic to penicillin. Started clindamycin 300 mg every 6 hours. Cellulitis improved significantly over the 3 days of hospitalization. Left armpit cellulitis has resolved. Right armpit cellulitis still persistent. Prescribed 4 more days of antibiotic therapy. 1 dose of Diflucan given #Erythrocytosis-likely from dehydration. Trend CBC daily.Erythrocytosis resolved. Time Spent with Patient Time attestation: Total time spent providing and/or coordinating discharge services: Time spent: Greater than 30 minutes EXAM Constitutional Vitals: Temp Pulse Resp BP Pulse Ox 97 F 64 16 155/82 99 12/01/21 08:00 12/01/21 08:00 12/01/21 08:00 12/01/21 08:00 12/01/21 08:00 General appearance: average body habitus, cooperative and no acute distress Head Head exam: Present atraumatic and normocephalic Eye Eye exam: Present normal appearance ENT ENT exam: Present mucous membranes moist Respiratory Respiratory exam: Present normal respiratory exam and CTAB; Absent accessory muscle use, rales, respiratory distress, stridor or wheezes Cardiovascular Cardiovascular exam: Present normal rate and rhythm and RRR; Absent bradycardia, diastolic murmur, gallop, irregular rhythm or rubs GI/Abdominal GI/Abdominal exam: Present normal bowel sounds and soft; Absent distended, guarding or rebound Expanded Lower Extremity Exam Hip exam: Present normal inspection; Absent swelling Back Exam Back exam: Present normal inspection; Absent CVA tenderness (L), CVA tenderness (R), paraspinal tenderness or vertebral tenderness Neurological Exam Neurological exam: Present alert and oriented X3; Absent abnormal gait or motor sensory deficit Skin Additional comments: Left armpit cellulitis has resolved. Right armpit cellulitis mildly present. But much better than before. No effusions or abscess felt on palpation. No warmth to touch. Discharge Data Data Completed and Pending Labs on day of discharge: Labs from last 24 hours 12/01/21 05:32 Sodium 128 L Potassium 4.3 Chloride 93 L Carbon Dioxide 25 Anion Gap 10.0 BUN 8 Creatinine 0.6 GFR Calculation 85 Glucose 84 Calcium 8.6 Discharge Plan Patient/Caregiver Discharge Instructions Activity: increase activity as tolerated Diet: Regular Diet Instructions: How to Stop Smoking (GEN), Hyponatremia (GEN), Cigarette Smoking and Your Health (GEN), Fall Prevention for Older Adults (GEN), Shoulder Pain (GEN) Prescriptions: New clindamycin HCl 150 mg Capsule 300 mg PO Q6 4 Days Qty: 32 0RF ondansetron 4 mg tablet,disintegrating 4 mg PO Q8H PRN (Reason: nausea and vomiting) Qty: 30 0RF lidocaine 5 % adhesive patch,medicated 1 patch topical QDAY Qty: 30 0RF Rx Instructions: leave on most painful area for up to 12 hrs Continued venlafaxine 150 MG capsule,extended release 24hr 150 mg PO DAILY 0RF omeprazole 20 MG capsule 20 mg PO DAILY 0RF amlodipine 5 MG tablet 5 mg PO DAILY Qty: 30 0RF carvedilol 12.5 mg tablet 1 tab PO BID 0RF atorvastatin 10 mg tablet 1 tab PO QDAY 0RF lamotrigine 25 mg tablet 2 tab PO BID 0RF irbesartan 300 mg tablet 1 tab PO QDAY 0RF Follow Up Plan Follow up with: Ivett Field ARNP [Primary Care Provider] - 12/08/21 9:45 am (Please arrive 10 minutes early) Patient Disposition: Home, Self-Care Overall status at discharge: patient is back to baseline Discharge Orders: Discharge Order (Routine); Ordered 12/01/21 Ordered By: Sally Taylor
[2021-12-01] MEDS ORDERED: LIDOCAINE PATCH TOPICAL ONE (12:34)
== END 2021-12-01 14:40 | disposition home or self-care (01) | DRG 641 ==
LOC: ED 12:34 → ICU 17:11
PROVIDERS: ADMIT Internal Medicine Medical Oncology; ATTEND Internal Medicine Medical Oncology

== ENCOUNTER 2024-08-25 11:01 | Inpatient (IN) ==
[2024-08-25 11:51] LABS: Basophils # (Auto) 0.03 K/mcL (0.00-0.30); Basophils % (Auto) 0.4 % (0.0-2.0); Hematocrit 36.4 % (34.1-44.9); Hemoglobin 12.1 g/dL (11.2-15.7); Lymphocytes # (Auto) 1.45 K/mcL (1.50-4.80); Lymphocytes % (Auto) 19.4 % (15.5-49.0); Mean Cell Volume 89.7 fL (80.0-100.0); Mean Corpuscular HGB Conc 33.2 g/dL (31.0-36.0); Mean Platelet Volume 9.7 fL (8.8-12.5); Monocytes # (Auto) 0.54 K/mcL (0.10-0.90); Monocytes % (Auto) 7.2 % (1.0-12.0); Neutrophils % (Auto) 68.7 % (38.0-78.0); Platelet Count 283 K/mcL (140-440); RBC 4.06 M/mcL (3.59-5.38); Red Cell Distribution Width 13.6 % (11.5-14.5); WBC 7.5 K/mcL (4.5-11.0)
[2024-08-25 12:15] LABS: ALT/SGPT 21 U/L (<40); AST/SGOT 49 U/L (<32); Albumin 4.4 gm/dL (3.2-5.2); Albumin/Globulin Ratio 1.9 (1.0-2.3); Alkaline Phosphatase 98 U/L (39-117); Bilirubin,Total 0.3 mg/dL (0.1-1.0); Blood Urea Nitrogen 22 mg/dL (8-23); Carbon Dioxide 19 mmol/L (22-30); Chloride 92 mmol/L (96-108); Globulin 2.3 gm/dL (2.2-3.7); Glomerular Filtration Rate 80; Glucose 85 mg/dL (70-105); Potassium 4.5 mmol/L (3.3-5.1); Sodium 128 mmol/L (133-145)
[2024-08-25 14:19] LABS: Phosphorous 3.5 mg/dL (2.5-4.5)
[2024-08-25 14:47] LABS: Appearance,Urine CLEAR (Clear); Bilirubin,Urine Negative (Negative); Color,Urine STRAW; Glucose,Urine (UA) Negative (Negative); Ketones,Urine Negative (Negative); Leukocyte Esterase,Urine Negative /uL (Negative); Nitrate,Urine Negative (Negative); Protein,Urine Negative (Negative); Specific Gravity,Urine 1.004 (1.000-1.035); Urine Blood 0.03 mg/dL (Negative); Urine Hyaline Cast 2 /lph (0-2); Urine RBC 0 /hpf (0-3); Urine Squamous Epithelial Cell < 1 /hpf (0-4); Urine Transitional Epi Cells < 1 /hpf (0-2); Urine WBC < 1 /hpf (0-4); Urobilinogen,Urine Negative
[2024-08-25] MEDS ORDERED: MAGNESIUM SULFATE 2 GM/50 ML BAG IV PRN (16:12)
[2024-08-25] MEDS ORDERED: IPRATROPIUM/ALBUTEROL 3 ML AMPUL.NEB NEB PRN (16:12)
[2024-08-25] MEDS ORDERED: METOCLOPRAMIDE 10 MG/2 ML VIAL IV PRN (16:12)
[2024-08-25] MEDS ORDERED: POTASSIUM CHLORIDE 20 MEQ TABLET PO PRN ×2 (16:12)
[2024-08-25] MEDS ORDERED: POTASSIUM CHLORIDE 40 MEQ in DEXTROSE 5% IN WATER 500 ML IV PRN (16:12)
[2024-08-25] MEDS ORDERED: SENNOSIDES 1 TABLET PO PRN (16:12)
[2024-08-25] MEDS ORDERED: POLYETHYLENE GLYCOL 3350 17 GM PACKET PO PRN (16:12)
[2024-08-25] MEDS: ENALAPRILAT 1.25 MG/ML VIAL IV PRN (17:41)
[2024-08-25] MEDS: SODIUM CHLORIDE 1 GM TABLET PO SCH (17:41)
[2024-08-25] MEDS: 0.9 % SODIUM CHLORIDE 1,000 ML IV ONE (19:46)
[2024-08-25] MEDS: lamoTRIgine 25 MG TABLET PO SCH (21:20)
[2024-08-25] MEDS: busPIRone 5 MG TABLET PO SCH (21:20)
[2024-08-25] MEDS: CARVEDILOL 12.5 MG TABLET PO SCH (21:24)
[2024-08-25] MEDS: 0.9 % SODIUM CHLORIDE 10 ML SYRINGE IV SCH (21:24)
[2024-08-25] MEDS: DOCUSATE SODIUM 100 MG CAPSULE PO SCH (21:24)
[2024-08-25 21:46] LABS: Hematocrit 44.6 % (34.1-44.9); Hemoglobin 14.2 g/dL (11.2-15.7)
[2024-08-26] MEDS ORDERED: 0.9 % SODIUM CHLORIDE 500 ML IV PRN (00:26)
[2024-08-26] MEDS ORDERED: NOREPINEPHRINE BITARTRATE 16 MG in 0.9 % SODIUM CHLORIDE 234 ML IV PRN (00:26)
[2024-08-26 01:36] LABS: Hematocrit 44.6 % (34.1-44.9); Hemoglobin 13.6 g/dL (11.2-15.7)
[2024-08-26 05:57] LABS: Basophils # (Auto) 0.01 K/mcL (0.00-0.30); Basophils % (Auto) 0.1 % (0.0-2.0); Eosinophils # (Auto) 0.01 K/mcL (0.00-0.70); Eosinophils % (Auto) 0.1 % (0.0-7.0); Hematocrit 41.1 % (34.1-44.9); Hemoglobin 13.3 g/dL (11.2-15.7); Lymphocytes # (Auto) 0.46 K/mcL (1.50-4.80); Lymphocytes % (Auto) 2.8 % (15.5-49.0); Mean Cell Volume 93.2 fL (80.0-100.0); Mean Corpuscular HGB Conc 32.4 g/dL (31.0-36.0); Mean Platelet Volume 9.8 fL (8.8-12.5); Monocytes # (Auto) 0.91 K/mcL (0.10-0.90); Monocytes % (Auto) 5.4 % (1.0-12.0); Neutrophils % (Auto) 91.4 % (38.0-78.0); Platelet Count 317 K/mcL (140-440); RBC 4.41 M/mcL (3.59-5.38); Red Cell Distribution Width 14.2 % (11.5-14.5); WBC 16.7 K/mcL (4.5-11.0)
[2024-08-26 06:49] LABS: ALT/SGPT 16 U/L (<40); AST/SGOT 41 U/L (<32); Albumin 3.7 gm/dL (3.2-5.2); Albumin/Globulin Ratio 1.5 (1.0-2.3); Alkaline Phosphatase 134 U/L (39-117); Bilirubin,Direct < 0.2 mg/dL (0-0.3); Bilirubin,Total 0.3 mg/dL (0.1-1.0); Blood Urea Nitrogen 26 mg/dL (8-23); Calcium 8.7 mg/dL (8.6-10.4); Carbon Dioxide 18 mmol/L (22-30); Chloride 101 mmol/L (96-108); Globulin 2.4 gm/dL (2.2-3.7); Glomerular Filtration Rate 46; Glucose 193 mg/dL (70-105); Lactate Dehydrogenase 244 U/L (135-225); Phosphorous 4.6 mg/dL (2.5-4.5); Potassium 4.3 mmol/L (3.3-5.1); Sodium 135 mmol/L (133-145); Triglycerides 214 mg/dL (<150); Uric Acid 5.6 mg/dL (2.5-8.0)
[2024-08-26] MEDS ORDERED: NOREPINEPHRINE 250 ML IV PRN (07:37)
[2024-08-26] MEDS: OMEPRAZOLE 20 MG CAPSULE PO SCH (07:52)
[2024-08-26] MEDS: 0.9 % SODIUM CHLORIDE 250 ML IV SCH ×2 (08:27→08:28)
[2024-08-26 08:53] LABS: Band Neutrophils % 4 % (0-10); Lymphocytes % 4 % (15-49); Monocytes % (Manual) 3 % (1-12); Platelet Estimate NORMAL (Normal); RBC Morphology NORMAL (Normal); Segmented Neutrophils % 89 % (38-78)
[2024-08-26] MEDS: VENLAFAXINE 75 MG CAP.XL.24H PO SCH (10:19)
[2024-08-26] MEDS: SODIUM BICARBONATE 650 MG TABLET PO SCH (10:19)
[2024-08-26] MEDS: amLODIPine 5 MG TABLET PO SCH (10:20)
[2024-08-26] MEDS: LOSARTAN 50 MG TABLET PO SCH (10:21)
[2024-08-26] MEDS: ONDANSETRON 4 MG/2 ML VIAL IV PRN (11:17)
[2024-08-26] MEDS: CIPROFLOXACIN 400 MG/200 ML BAG IV SCH (11:23)
[2024-08-26] MEDS: metroNIDAZOLE 500 MG/100 ML BAG IV SCH (12:38)
[2024-08-26] MEDS: ACETAMINOPHEN 325 MG TABLET PO PRN (19:47)
[2024-08-27 06:23] LABS: Basophils # (Auto) 0.02 K/mcL (0.00-0.30); Basophils % (Auto) 0.3 % (0.0-2.0); Eosinophils # (Auto) 0.17 K/mcL (0.00-0.70); Eosinophils % (Auto) 2.4 % (0.0-7.0); Hemoglobin 9.5 g/dL (11.2-15.7); Lymphocytes # (Auto) 0.86 K/mcL (1.50-4.80); Lymphocytes % (Auto) 12.3 % (15.5-49.0); Mean Cell Volume 92.1 fL (80.0-100.0); Mean Corpuscular HGB Conc 32.8 g/dL (31.0-36.0); Monocytes # (Auto) 0.49 K/mcL (0.10-0.90); Neutrophils % (Auto) 77.7 % (38.0-78.0); Platelet Count 211 K/mcL (140-440); RBC 3.15 M/mcL (3.59-5.38); Red Cell Distribution Width 14.4 % (11.5-14.5)
[2024-08-27 06:28] LABS: ALT/SGPT 12 U/L (<40); AST/SGOT 23 U/L (<32); Albumin 3.2 gm/dL (3.2-5.2); Albumin/Globulin Ratio 1.7 (1.0-2.3); Alkaline Phosphatase 86 U/L (39-117); Bilirubin,Direct < 0.2 mg/dL (0-0.3); Bilirubin,Total 0.4 mg/dL (0.1-1.0); Blood Urea Nitrogen 14 mg/dL (8-23); Carbon Dioxide 24 mmol/L (22-30); Chloride 101 mmol/L (96-108); Globulin 1.9 gm/dL (2.2-3.7); Glomerular Filtration Rate 68; Glucose 112 mg/dL (70-105); Lactate Dehydrogenase 169 U/L (135-225); Phosphorous 2.3 mg/dL (2.5-4.5); Potassium 3.9 mmol/L (3.3-5.1); Sodium 134 mmol/L (133-145); Triglycerides 124 mg/dL (<150); Uric Acid 4.7 mg/dL (2.5-8.0)
[2024-08-27] MEDS: LORATADINE 10 MG TABLET PO ONE (16:40)
[2024-08-27] MEDS: LOPERAMIDE 2 MG CAPSULE PO PRN (17:40)
[2024-08-27] MEDS: ENALAPRILAT 1.25 MG/ML VIAL IV PRN (21:02)
[2024-08-27] MEDS: NICOTINE 21 MG PATCH TOPICAL ONE (22:34)
[2024-08-27] MEDS: NICOTINE 21 MG PATCH ONE (22:35)
[2024-08-28 08:05] VITALS: TEMP 98
[2024-08-28 10:11] VITALS: O2SAT 98
[2024-08-28] MEDS: NICOTINE 21 MG PATCH TOPICAL SCH (11:47)
[2024-08-28] MEDS ORDERED: LORATADINE 10 MG TABLET PO SCH (21:00)
== END 2024-08-28 13:15 | disposition home or self-care (01) | DRG 378 ==
LOC: ED 11:01 → MEDSUR 16:03 → ICU 23:59
PROVIDERS: ADMIT Internal Medicine; ATTEND Internal Medicine

== ENCOUNTER 2025-02-08 13:58 | Inpatient (IN) ==
[2025-02-08 14:42] LABS: Basophils # (Auto) 0.01 K/mcL (0.00-0.30); Basophils % (Auto) 0.1 % (0.0-2.0); Eosinophils # (Auto) 0.09 K/mcL (0.00-0.70); Eosinophils % (Auto) 1.1 % (0.0-7.0); Hemoglobin 11.4 g/dL (11.2-15.7); Lymphocytes # (Auto) 0.83 K/mcL (1.50-4.80); Mean Cell Volume 87.9 fL (80.0-100.0); Mean Corpuscular HGB Conc 32.6 g/dL (31.0-36.0); Mean Platelet Volume 10.2 fL (8.8-12.5); Monocytes # (Auto) 0.62 K/mcL (0.10-0.90); Monocytes % (Auto) 7.5 % (1.0-12.0); Neutrophils % (Auto) 81.2 % (38.0-78.0); Platelet Count 228 K/mcL (140-440); RBC 3.98 M/mcL (3.59-5.38); Red Cell Distribution Width 16.3 % (11.5-14.5); WBC 8.3 K/mcL (4.5-11.0)
[2025-02-08 15:27] LABS: ALT/SGPT 10 U/L (<40); AST/SGOT 22 U/L (<32); Albumin 3.8 gm/dL (3.2-5.2); Albumin/Globulin Ratio 1.7 (1.0-2.3); Alkaline Phosphatase 77 U/L (39-117); Bilirubin,Total 0.4 mg/dL (0.1-1.0); Blood Urea Nitrogen 10 mg/dL (8-23); Calcium 8.6 mg/dL (8.6-10.4); Carbon Dioxide 24 mmol/L (22-30); Chloride 97 mmol/L (96-108); Creatine Kinase 188 U/L (24-170); Globulin 2.3 gm/dL (2.2-3.7); Glomerular Filtration Rate 89; Glucose 102 mg/dL (70-105); Sodium 133 mmol/L (133-145)
[2025-02-08 15:28] LABS: Thyroid Stimulating Hormone 1.99 uIU/mL (0.27-5.01)
[2025-02-08 15:39] LABS: Free T4 (Free Thyroxine) 1.01 ng/dL (0.93-1.70)
[2025-02-08 16:12] LABS: Appearance,Urine Clear (Clear); Bacteria,Urine 0 /hpf (0); Bilirubin,Urine Negative (Negative); Color,Urine Yellow; Glucose,Urine (UA) Negative (Negative); Ketones,Urine Negative (Negative); Leukocyte Esterase,Urine Negative /uL (Negative); Nitrate,Urine Negative (Negative); Protein,Urine Negative (Negative); Specific Gravity,Urine <= 1.005 (1.000-1.035); Urine Blood Trace-lysed ery/mcL (Negative); Urine RBC 0 /hpf (0-3); Urine Squamous Epithelial Cell 2 /hpf (0-4); Urine WBC 4 /hpf (0-4); Urobilinogen,Urine Normal
[2025-02-08] MEDS: morphine 2 MG/ML VIAL IV ONE (16:28)
[2025-02-08] MEDS ORDERED: IPRATROPIUM/ALBUTEROL 3 ML AMPUL.NEB NEB PRN (18:59)
[2025-02-08] MEDS ORDERED: hydrALAZINE 20 MG/ML VIAL IV PRN (18:59)
[2025-02-08] MEDS ORDERED: traZODone HCL 50 MG TABLET PO PRN (18:59)
[2025-02-08] MEDS: HYDROmorphone 1 MG/ML SYRINGE IV PRN (19:59)
[2025-02-08] MEDS: SENNOSIDES 1 TABLET PO SCH (21:46)
[2025-02-08] MEDS: DOCUSATE SODIUM 100 MG CAPSULE PO SCH (21:47)
[2025-02-08] MEDS: 0.9 % SODIUM CHLORIDE 10 ML SYRINGE IV SCH (21:47)
[2025-02-09 06:41] LABS: Blood Urea Nitrogen 9 mg/dL (8-23); Calcium 8.9 mg/dL (8.6-10.4); Carbon Dioxide 28 mmol/L (22-30); Chloride 96 mmol/L (96-108); Glomerular Filtration Rate 83; Glucose 114 mg/dL (70-105); Potassium 3.2 mmol/L (3.3-5.1); Sodium 135 mmol/L (133-145)
[2025-02-09 06:42] LABS: Creatine Kinase 144 U/L (24-170)
[2025-02-09] MEDS: oxyCODONE IR 5 MG TABLET PO PRN (08:35)
[2025-02-09] MEDS: ENOXAPARIN 40 MG/0.4 ML SYRINGE SQ SCH (08:35)
[2025-02-09] MEDS: POTASSIUM CHLORIDE 20 MEQ TABLET PO SCH (08:35)
[2025-02-09] MEDS: ONDANSETRON 4 MG/2 ML VIAL IV PRN (11:03)
[2025-02-09] MEDS: busPIRone 5 MG TABLET PO SCH (11:05)
[2025-02-09] MEDS: LOSARTAN 50 MG TABLET PO SCH (11:05)
[2025-02-09] MEDS: OMEPRAZOLE 20 MG CAPSULE PO SCH (11:05)
[2025-02-09] MEDS: lamoTRIgine 25 MG TABLET PO SCH (11:05)
[2025-02-09] MEDS: amLODIPine 5 MG TABLET PO SCH (11:05)
[2025-02-09] MEDS: VENLAFAXINE 150 MG CAP.XL.24H PO SCH (11:05)
[2025-02-09] MEDS: CARVEDILOL 12.5 MG TABLET PO SCH (17:27)
[2025-02-10 07:11] LABS: Blood Urea Nitrogen 8 mg/dL (8-23); Calcium 8.5 mg/dL (8.6-10.4); Carbon Dioxide 27 mmol/L (22-30); Chloride 97 mmol/L (96-108); Glomerular Filtration Rate 89; Glucose 105 mg/dL (70-105); Potassium 4.4 mmol/L (3.3-5.1); Sodium 135 mmol/L (133-145)
[2025-02-10] MEDS: GABAPENTIN 100 MG CAPSULE PO SCH (15:10)
[2025-02-10] MEDS ORDERED: POLYETHYLENE GLYCOL 3350 17 GM PACKET PO PRN (17:57)
[2025-02-11 06:47] LABS: Blood Urea Nitrogen 11 mg/dL (8-23); Calcium 8.9 mg/dL (8.6-10.4); Carbon Dioxide 27 mmol/L (22-30); Chloride 97 mmol/L (96-108); Glomerular Filtration Rate 83; Glucose 97 mg/dL (70-105); Potassium 5.1 mmol/L (3.3-5.1); Sodium 135 mmol/L (133-145)
[2025-02-11] MEDS: ACETAMINOPHEN 325 MG TABLET PO PRN (10:51)
[2025-02-11 14:09] VITALS: TEMP 97.9; O2SAT 98
== END 2025-02-11 13:50 | DRG 563 ==
LOC: MEDSUR 13:58 → ED 13:58 → MEDSUR 18:57
PROVIDERS: ADMIT Internal Medicine; ATTEND Internal Medicine